=== PATIENT | male | born 1940 | race Caucasian/White ===

== ENCOUNTER → 2017-02-08 | Outpatient (CLI) | payer MEDICARE ==
[2017-02-08 12:55] LABS: Anisocytosis Slight; CH 25.8; CHCM 29.1; HCT 32.8 % (39.0-53.0); HDW 2.68; HGB 9.8 gm/dL (13.0-17.5); Hypochromasia Marked; MCH 26.7 pg (25.0-35.0); MCV 88.9 fL (80.0-100.0); RBC 3.69 m/uL (4.30-5.90); RDW 18.2 % (11.5-15.5); WBC 4.5 k/uL (3.8-10.6)
[2017-02-08 13:03] LABS: ALT 33 U/L (21-72); AST 42 U/L (17-59); Alkaline Phosphatase 149 U/L (38-126); Anion Gap 9 mmol/L; Bilirubin, Delta 0.5 mg/dL (0.0-0.2); Blood Urea Nitrogen 12 mg/dL (9-20); Calcium 8.6 mg/dL (8.4-10.2); Carbon Dioxide 25 mmol/L (22-30); Chloride 102 mmol/L (98-107); Glucose 126 mg/dL (74-99); Non-African American GFR(MDRD) >60 (>60 ml/min/1.73 sqM); Potassium 4.1 mmol/L (3.5-5.1); Sodium 136 mmol/L (137-145); Total Bilirubin 1.1 mg/dL (0.2-1.3); Total Protein 7.5 g/dL (6.3-8.2)
== END | disposition home or self-care (01) ==
LOC: LABWHC1 12:29
PROVIDERS: ATTEND Radiology Vascular & Interventional Radiology
DX: C22.0 Liver cell carcinoma (principal)
CPT/HCPCS: 36415; 80048; 80076; 82105; 85027

== ENCOUNTER → 2017-03-04 | Outpatient (CLI) | payer MEDICARE ==
[2017-03-04 11:44] LABS: Anisocytosis Slight; Basophils % (A) 0 %; CH 26.9; CHCM 29.2; Eosinophils % (A) 1 %; HCT 26.4 % (39.0-53.0); HDW 2.52; Hypochromasia Marked; Luc # (Auto) 0.09; Luc % (Auto) 2; Lymphocytes # (A) 0.4 k/uL (1.0-4.8); Lymphocytes % (A) 9 %; MCH 27.5 pg (25.0-35.0); MCHC 29.8 g/dL (31.0-37.0); MCV 92.3 fL (80.0-100.0); Mean Platelet Volume 7.1; Monocytes # (A) 0.2 k/uL (0-1.0); Monocytes % (A) 4 %; Neutrophils # (A) 3.8 k/uL (1.3-7.7); Neutrophils % (A) 84 %; RBC 2.86 m/uL (4.30-5.90); RDW 17.8 % (11.5-15.5); WBC 4.5 k/uL (3.8-10.6); WBC (Perox) 5.02
[2017-03-04 11:50] LABS: INR 2.1 (<1.1); Partial Thromboplastin Time 27.9 sec (22.0-30.0); Prothrombin Time 20.5 sec (9.0-12.0)
[2017-03-04 11:51] LABS: HGB 7.9 gm/dL (13.0-17.5)
[2017-03-04 12:18] LABS: Anion Gap 9 mmol/L; Blood Urea Nitrogen 22 mg/dL (9-20); Calcium 8.8 mg/dL (8.4-10.2); Carbon Dioxide 24 mmol/L (22-30); Chloride 100 mmol/L (98-107); Glucose 146 mg/dL (74-99); Non-African American GFR(MDRD) >60 (>60 ml/min/1.73 sqM); Potassium 3.9 mmol/L (3.5-5.1); Sodium 133 mmol/L (137-145)
== END | disposition home or self-care (01) ==
LOC: LABWHC1 11:12
PROVIDERS: ATTEND Radiology Vascular & Interventional Radiology
DX: C22.0 Liver cell carcinoma (principal); K70.31 Alcoholic cirrhosis of liver with ascites
CPT/HCPCS: 36415; 80048; 85025; 85610; 85730

== ENCOUNTER 2017-03-19 07:50 | Day surgery (SDC) | payer MEDICARE ==
[2017-03-17 10:07] VITALS: BMI 19.2
[~2017-03-19 07:50] MED LIST: LACTATED RINGERS 1,000 ML IV SCH; LIDOCAINE 1% 20 ML VIAL (10MG/ML) FOR IV START INTRADERMA PRN
[2017-03-19 08:25] VITALS: TEMP 97.6
[2017-03-19] MEDS ORDERED: LIDOCAINE 1% INJ 10MG/ML (20 ML MDV) ONE (08:58)
[2017-03-19] MEDS ORDERED: PROPOFOL 10 MG/ML 20 ML VIAL IV ONE (08:58)
--- NOTE | 2017-03-19 09:10 | P.PCN ---
Date of Procedure: 03/19/17 Preoperative Diagnosis: Postoperative Diagnosis: Procedure(s) Performed: BRIEF HISTORY: Patient is a 77-year-old, pleasant, white male, scheduled for an upper endoscopy as a part of evaluation of long-standing history of GERD and dysphagia. He also has history of alcoholic cirrhosis of the liver diagnosed 4 years ago.. PROCEDURE PERFORMED: Esophagogastroduodenoscopy. PREOPERATIVE DIAGNOSIS: Dysphagia, GERD. History of liver cirrhosis. IV sedation per anesthesia. PROCEDURE: After informed consent was obtained, the patient was brought into the endoscopy unit. IV sedation was administered by Anesthesia under continuous monitoring. Initially the Olympus GIF-140 video endoscope was inserted into the mouth. Esophagus intubated without any difficulty. It was gradually advanced into the stomach and duodenum and carefully examined. The bulb and the second part of the duodenum appeared normal. The scope at this time was withdrawn to the stomach, adequately insufflated with air, and upon careful examination, mucosa of the antrum, body, had changes consistent with mild portal gastropathy. The cardia and the fundus appeared normal. No gastric varices seen. The scope was then withdrawn into the esophagus. Small sliding Hiatal hernia noted. The GE junction was located at 39 cm from the incisors. There were no erosions or ulcerations seen. No esophageal stricture identified. There were grade 2 nonbleeding distal esophageal varices seen and the patient tolerated the procedure well. IMPRESSION: 1. Grade 2 nonbleeding distal esophageal varices. 2. Small hiatal hernia but no evidence of esophagitis or esophageal stricture 3. Mild portal hypertensive gastropathy RECOMMENDATIONS: The findings of this examination were discussed with the patient as well as his family. He was advised to continue with his current medications and follow antireflux measures.. Implants: Indications for Procedure: Operative Findings: Description of Procedure:
[2017-03-19 09:27] VITALS: BP 99/56; PULSE 71; RESP 18
== END 2017-03-19 10:03 | disposition home or self-care (01) ==
LOC: ORWHC2ENDO 07:50
PROVIDERS: ATTEND Internal Medicine Gastroenterology
DX: I85.00 Esophageal varices without bleeding (principal); R13.10 Dysphagia, unspecified; K44.9 Diaphragmatic hernia without obstruction or gangrene; K76.6 Portal hypertension; K31.89 Other diseases of stomach and duodenum; I25.10 Atherosclerotic heart disease of native coronary artery without angina pectoris; I10 Essential (primary) hypertension; K70.30 Alcoholic cirrhosis of liver without ascites; E78.5 Hyperlipidemia, unspecified; K21.9 Gastro-esophageal reflux disease without esophagitis; C22.8 Malignant neoplasm of liver, primary, unspecified as to type; Z79.82 Long term (current) use of aspirin; Z79.899 Other long term (current) drug therapy
CPT/HCPCS: 43235; J2001; J2704

== ENCOUNTER → 2017-03-21 | Outpatient (CLI) | payer MEDICARE ==
[2017-03-21 13:02] LABS: Anisocytosis Slight; Basophils % (A) 0 %; CH 26.9; CHCM 28.9; Eosinophils % (A) 0 %; HCT 26.7 % (39.0-53.0); HDW 2.57; HGB 7.8 gm/dL (13.0-17.5); Hypochromasia Marked; Luc # (Auto) 0.14; Luc % (Auto) 1; Lymphocytes # (A) 0.4 k/uL (1.0-4.8); Lymphocytes % (A) 3 %; MCH 27.3 pg (25.0-35.0); MCHC 29.2 g/dL (31.0-37.0); MCV 93.4 fL (80.0-100.0); Mean Platelet Volume 7.5; Monocytes # (A) 0.5 k/uL (0-1.0); Monocytes % (A) 4 %; Neutrophils # (A) 10.7 k/uL (1.3-7.7); Neutrophils % (A) 91 %; RBC 2.86 m/uL (4.30-5.90); WBC 11.7 k/uL (3.8-10.6); WBC (Perox) 12.09
[2017-03-21 13:14] LABS: Anion Gap 12 mmol/L; Blood Urea Nitrogen 18 mg/dL (9-20); Carbon Dioxide 22 mmol/L (22-30); Chloride 104 mmol/L (98-107); Glucose 189 mg/dL (74-99); Non-African American GFR(MDRD) 57 (>60 ml/min/1.73 sqM); Sodium 138 mmol/L (137-145)
[2017-03-21 13:15] LABS: INR 1.9 (<1.1); Prothrombin Time 17.9 sec (9.0-12.0)
[2017-03-21 14:09] LABS: Partial Thromboplastin Time 26.4 sec (22.0-30.0)
== END | disposition home or self-care (01) ==
LOC: LABWHC1 12:28
PROVIDERS: ATTEND Radiology Vascular & Interventional Radiology
DX: C22.0 Liver cell carcinoma (principal)
CPT/HCPCS: 36415; 80048; 85025; 85610; 85730

== ENCOUNTER → 2017-04-18 | Outpatient (CLI) | payer MEDICARE ==
[2017-04-18 14:08] LABS: Basophils % (A) 0 %; CH 26.2; CHCM 29.3; Eosinophils # (A) 0.1 k/uL (0-0.7); Eosinophils % (A) 2 %; HCT 25.5 % (39.0-53.0); HDW 2.62; HGB 7.8 gm/dL (13.0-17.5); Hypochromasia Marked; Luc # (Auto) 0.11; Luc % (Auto) 2; Lymphocytes # (A) 0.3 k/uL (1.0-4.8); Lymphocytes % (A) 5 %; MCH 27.3 pg (25.0-35.0); MCHC 30.5 g/dL (31.0-37.0); MCV 89.8 fL (80.0-100.0); Mean Platelet Volume 7.6; Monocytes # (A) 0.5 k/uL (0-1.0); Monocytes % (A) 9 %; Neutrophils # (A) 4.6 k/uL (1.3-7.7); Neutrophils % (A) 83 %; RBC 2.84 m/uL (4.30-5.90); RDW 15.4 % (11.5-15.5); WBC 5.6 k/uL (3.8-10.6); WBC (Perox) 5.82
[2017-04-18 14:19] LABS: ALT 33 U/L (21-72); AST 47 U/L (17-59); Alkaline Phosphatase 217 U/L (38-126); Anion Gap 9 mmol/L; Bilirubin, Delta 0.7 mg/dL (0.0-0.2); Blood Urea Nitrogen 15 mg/dL (9-20); Calcium 8.8 mg/dL (8.4-10.2); Carbon Dioxide 24 mmol/L (22-30); Chloride 100 mmol/L (98-107); Glucose 105 mg/dL (74-99); Non-African American GFR(MDRD) >60 (>60 ml/min/1.73 sqM); Potassium 3.9 mmol/L (3.5-5.1); Sodium 133 mmol/L (137-145); Total Bilirubin 1.4 mg/dL (0.2-1.3); Total Protein 6.3 g/dL (6.3-8.2)
== END ==
LOC: LABWHC1 13:34
PROVIDERS: ATTEND Radiology Vascular & Interventional Radiology
DX: C22.0 Liver cell carcinoma (principal)
CPT/HCPCS: 36415; 80048; 80076; 82105; 85025

== ENCOUNTER 2017-07-25 01:45 | Inpatient (IN) | payer MEDICARE ==
[2017-07-25] MEDS ORDERED: IPRATROPIUM-ALBUTEROL 3 ML NEB INHALATION STA (02:13)
[2017-07-25] MEDS ORDERED: SODIUM CHLORIDE 0.9% 1,000 ML IV STA ×2 (02:13)
--- NOTE | 2017-07-25 02:21 | ED ---
URI HPI - General Source: patient, RN notes reviewed, old records reviewed Mode of arrival: wheelchair Limitations: no limitations <Ange Hightower - Last Filed: 07/25/17 13:42> <Zhang Thomason - Last Filed: 08/01/17 09:49> - General Chief Complaint: Upper Respiratory Infection Stated Complaint: Cough,CHRIS Time Seen by Provider: 07/25/17 01:59 - History of Present Illness Initial Comments: This is a 77-year-old male with a history of hepatocellular carcinoma with metastases presents emergency Department chief complaint of difficulty breathing , and cough for the past 2 days. He reports he's had a minor cough over the past few weeks but became progressively worse yesterday into today. Patient is concerned that he may have pneumonia. Patient states last chemo treatment was a proximally 1 month ago. Majority of his treatments are completed a [facility]. Patient reports that he's had no specific chest pain. Denies any hemoptysis. He reports that he's had cough but is unable to bring any sputum up. Patient has no known fever but states he feels chilled. He does have a significant weight loss over the past few months due to the cancer. does have a pacemaker. Patient denies any worsening abdominal pain, nausea or vomiting. Patient denies any recent fever, chills, chest pain, back pain, abdominal pain, nausea vomiting, numbness or tingling, dysuria or hematuria, constipation or diarrhea, headaches or visual changes, or any other current symptoms (Ange Hightower) - Related Data Home Medications Medication Instructions Recorded Confirmed Aspirin EC [Ecotrin] 325 mg PO DAILY 02/14/15 07/25/17 Furosemide [Lasix] 40 mg PO DAILY 02/14/15 07/25/17 Metoprolol Tartrate 25 mg PO BID 02/14/15 07/25/17 Simvastatin [Zocor] 20 mg PO HS 02/14/15 07/25/17 Spironolactone [Aldactone] 50 mg PO BID 02/14/15 07/25/17 amLODIPine BESYLATE/BENAZEPRIL 1 cap PO DAILY 02/14/15 07/25/17 [Lotrel 5-20 mg Capsule] Ferrous Sulfate [Iron] 325 mg PO TID 07/25/17 07/25/17 Allergies Allergy/AdvReac Type Severity Reaction Status Date / Time Iodine and Iodide Containing Allergy Rash/Hives Verified 07/25/17 09:43 Produc Review of Systems ROS Other: All systems not noted in ROS Statement are negative. <Ange Hightower - Last Filed: 07/25/17 13:42> ROS Other: All systems not noted in ROS Statement are negative. <Zhang Thomason - Last Filed: 08/01/17 09:49> ROS Statement: Those systems with pertinent positive or pertinent negative responses have been documented in the HPI. Past Medical History Past Medical History: Coronary Artery Disease (CAD), Hyperlipidemia, Hypertension, Liver Disease, Osteoarthritis (OA), Skin Disorder Additional Past Medical History / Comment(s): hx of eczema, previous fluid in belly, drained during hernia surgery 3.5L, STATES HAS 2 PRECANCEROUS TUMORS IN PORTAL VEIN OF LIVER History of Any Multi-Drug Resistant Organisms: None Reported Past Surgical History: Heart Catheterization With Stent, Hernia Repair, Orthopedic Surgery, Pacemaker Additional Past Surgical History / Comment(s): hernia repair 2013, left ankle surgery orif, PORTAL VEIN MAPPING 03/04/17, BILAT CATARACTS REMOVED Past Anesthesia/Blood Transfusion Reactions: No Reported Reaction Additional Past Anesthesia/Blood Transfusion Reaction / Comment(s): never had transfusion Date of Last Stent Placement:: 2010 Type of Cardiac Device: Permanent Pacemaker Device Placement Date:: 2009 Past Psychological History: No Psychological Hx Reported Smoking Status: Former smoker - Past Family History Father Family Medical History: Cancer Additional Family Medical History / Comment(s): Kemi Gherig's Disease Mother Family Medical History: Hypertension Additional Family Medical History / Comment(s): Mother lived to be in her early 80s. <Ange Hightower - Last Filed: 07/25/17 13:42> General Exam Limitations: no limitations General appearance: alert, in no apparent distress Head exam: Present: atraumatic, normocephalic, normal inspection Eye exam: Present: normal appearance, PERRL, EOMI. Absent: scleral icterus, conjunctival injection, periorbital swelling ENT exam: Present: normal exam, mucous membranes moist Neck exam: Present: normal inspection. Absent: tenderness, meningismus, lymphadenopathy Respiratory exam: Present: rhonchi, decreased breath sounds (Is and diminished lung sounds over the right lower lung base.). Absent: normal lung sounds bilaterally, respiratory distress, wheezes, rales, stridor Cardiovascular Exam: Present: regular rate, normal rhythm, normal heart sounds. Absent: systolic murmur, diastolic murmur, rubs, gallop, clicks GI/Abdominal exam: Present: soft, normal bowel sounds. Absent: distended, tenderness, guarding, rebound, rigid Extremities exam: Present: normal inspection, full ROM, normal capillary refill. Absent: tenderness, pedal edema, joint swelling, calf tenderness Back exam: Present: normal inspection Neurological exam: Present: alert, oriented X3, CN II-XII intact Psychiatric exam: Present: normal affect, normal mood Skin exam: Present: warm, dry, intact, normal color. Absent: rash <Ange Hightower - Last Filed: 07/25/17 13:42> <Zhang Thomason - Last Filed: 08/01/17 09:49> - General Exam Comments Initial Comments: 77-year-old male. Patient appears cachectic.Patient's temperature is 96.8. Pulse of 80. Respiratory rate 16. Blood pressure 80/52. Pulse ox is 98% on room air. (Ange Hightower) Course <Ange Hightower - Last Filed: 07/25/17 13:42> <Zhang Thomason - Last Filed: 08/01/17 09:49> Vital Signs 07/25/17 07/25/17 07/25/17 01:50 02:33 02:42 Temperature 96.8 F L Pulse Rate 80 75 78 Respiratory 16 Rate Blood Pressure 80/52 O2 Sat by Pulse 98 Oximetry 07/25/17 07/25/17 07/25/17 03:25 04:47 05:44 Temperature 97 F L Pulse Rate 86 72 70 Respiratory 16 18 18 Rate Blood Pressure 106/55 90/50 87/56 O2 Sat by Pulse 100 98 98 Oximetry - Reevaluation(s) Reevaluation #1: 07/25/17 02:45 This time patient has a small skin tire on his left forearm. He bumped it on the bed rail. It is thoroughly irrigated and closed with Dermabond. Dressing also applied. Laceration measures approximately 1 cm. It is superficial. ( Ange Hightower) Medical Decision Making - Lab Data Result diagrams: 07/25/17 02:31 07/25/17 02:31 - Radiology Data Radiology results: report reviewed <Ange Hightower - Last Filed: 07/25/17 13:42> - Lab Data Result diagrams: 07/25/17 02:31 07/25/17 02:31 <Zhang Thomason - Last Filed: 08/01/17 09:49> - Medical Decision Making This is a 77-year-old male with a history of hepatocellular carcinoma with metastases presents emergency Department chief complaint of difficulty breathing , and cough for the past 2 days. He reports he's had a minor cough over the past few weeks but became progressively worse yesterday into today. Patient is concerned that he may have pneumonia. Patient states last chemo treatment was a proximally 1 month ago. Majority of his treatments are completed a [facility]. Patient reports that he's had no specific chest pain. Patient is given IV fluids and sepsis protocol initiated. Lactic acid and blood cultures obtained. Patient does have significant rhonchi on auscultation, and diminished lung sounds bilaterally. Patient does have a elevated d-dimer of 4.18. Patient is given CT SIMS chest, was premedicated with Solu-Medrol due to iodine ALLERGY. Patient's chest x-ray does show a moderate opacity within the right lung base consistent with a pleural effusion and probable atelectasis. was informed of these results. At 4:05 AM patient's case will be transferred to Dr. Martinez. He will make the final disposition. (Ange Hightower) I saw this patient in conjunction with the physician office assistant. I performed independent history and physical exam. Agree with case management. (Zhang Thomason) - Lab Data Lab Results 07/25/17 07/25/17 07/25/17 Range/Units 02:31 02:31 02:31 WBC 9.3 (3.8-10.6) k/uL RBC 3.48 L (4.30-5.90) m/uL Hgb 10.4 L (13.0-17.5) gm/dL Hct 33.8 L (39.0-53.0) % MCV 97.1 (80.0-100.0) fL MCH 29.7 (25.0-35.0) pg MCHC 30.6 L (31.0-37.0) g/dL RDW 16.8 H (11.5-15.5) % Plt Count 99 L (150-450) k/uL Neutrophils % 87 % Lymphocytes % 5 % Monocytes % 6 % Eosinophils % 1 % Basophils % 0 % Neutrophils # 8.1 H (1.3-7.7) k/uL Lymphocytes # 0.5 L (1.0-4.8) k/uL Monocytes # 0.6 (0-1.0) k/uL Eosinophils # 0.1 (0-0.7) k/uL Basophils # 0.0 (0-0.2) k/uL Hypochromasia Slight Anisocytosis Slight Macrocytosis Slight PT (9.0-12.0) sec INR (<1.2) APTT (22.0-30.0) sec D-Dimer (<0.60) mg/L FEU Sodium 129 L (137-145) mmol/L Potassium 3.5 (3.5-5.1) mmol/L Chloride 94 L (98-107) mmol/L Carbon Dioxide 25 (22-30) mmol/L Anion Gap 10 mmol/L BUN 12 (9-20) mg/dL Creatinine 1.00 (0.66-1.25) mg/dL Est GFR (MDRD) Af Amer >60 (>60 ml/min/1.73 sqM) Est GFR (MDRD) Non-Af >60 (>60 ml/min/1.73 sqM) Glucose 87 (74-99) mg/dL Plasma Lactic Acid Chemo (0.7-2.0) mmol/L Calcium 9.4 (8.4-10.2) mg/dL Magnesium 1.7 (1.6-2.3) mg/dL Total Bilirubin 3.4 H (0.2-1.3) mg/dL AST 49 (17-59) U/L ALT 38 (21-72) U/L Alkaline Phosphatase 283 H (38-126) U/L Total Creatine Kinase 66 (55-170) U/L CK-MB (CK-2) 1.4 (0.0-2.4) ng/mL CK-MB (CK-2) Rel Index 2.1 Troponin I 0.018 (0.000-0.034) ng/mL Total Protein 6.5 (6.3-8.2) g/dL Albumin 2.6 L (3.5-5.0) g/dL 07/25/17 07/25/17 Range/Units 02:31 02:31 WBC (3.8-10.6) k/uL RBC (4.30-5.90) m/uL Hgb (13.0-17.5) gm/dL Hct (39.0-53.0) % MCV (80.0-100.0) fL MCH (25.0-35.0) pg MCHC (31.0-37.0) g/dL RDW (11.5-15.5) % Plt Count (150-450) k/uL Neutrophils % % Lymphocytes % % Monocytes % % Eosinophils % % Basophils % % Neutrophils # (1.3-7.7) k/uL Lymphocytes # (1.0-4.8) k/uL Monocytes # (0-1.0) k/uL Eosinophils # (0-0.7) k/uL Basophils # (0-0.2) k/uL Hypochromasia Anisocytosis Macrocytosis PT 23.8 H (9.0-12.0) sec INR 2.5 H (<1.2) APTT 28.5 (22.0-30.0) sec D-Dimer 4.13 H (<0.60) mg/L FEU Sodium (137-145) mmol/L Potassium (3.5-5.1) mmol/L Chloride (98-107) mmol/L Carbon Dioxide (22-30) mmol/L Anion Gap mmol/L BUN (9-20) mg/dL Creatinine (0.66-1.25) mg/dL Est GFR (MDRD) Af Amer (>60 ml/min/1.73 sqM) Est GFR (MDRD) Non-Af (>60 ml/min/1.73 sqM) Glucose (74-99) mg/dL Plasma Lactic Acid Chemo 1.9 (0.7-2.0) mmol/L Calcium (8.4-10.2) mg/dL Magnesium (1.6-2.3) mg/dL Total Bilirubin (0.2-1.3) mg/dL AST (17-59) U/L ALT (21-72) U/L Alkaline Phosphatase (38-126) U/L Total Creatine Kinase (55-170) U/L CK-MB (CK-2) (0.0-2.4) ng/mL CK-MB (CK-2) Rel Index Troponin I (0.000-0.034) ng/mL Total Protein (6.3-8.2) g/dL Albumin (3.5-5.0) g/dL 07/25/17 02:37 EKG shows a ventricular paced rhythm. [place] interval of 69 bpm. QRS duration 162 ms. QT QTc is 510/546 ms. (Ange Hightower) - Radiology Data Moderate opacity within the right lung base consistent with pleural effusion and probable atelectasis. (Ange Hightower) Disposition <Ange Hightower - Last Filed: 07/25/17 13:42> <Zhang Thomason - Last Filed: 08/01/17 09:49> Clinical Impression: Pleural effusion, Pneumonia, Hyponatremia, Elevated d-dimer, Anemia, Dyspnea Disposition: ADMITTED IP TO THIS HOSP Condition: Poor
[2017-07-25] MEDS ORDERED: SODIUM CHLORIDE 0.9% 1,000 ML IV ONE (02:31)
[2017-07-25] MEDS ORDERED: PROMETHAZ-COD 6.25-10 MG/5 ML 5 ML CUP PO STA (02:41)
[2017-07-25] MEDS ORDERED: TOPICAL SKIN ADHESIVE 1 EACH AMP TOPICAL ONE (02:45)
[2017-07-25 02:59] LABS: ALT 38 U/L (21-72); AST 49 U/L (17-59); Alkaline Phosphatase 283 U/L (38-126); Anion Gap 10 mmol/L; Blood Urea Nitrogen 12 mg/dL (9-20); Calcium 9.4 mg/dL (8.4-10.2); Carbon Dioxide 25 mmol/L (22-30); Chloride 94 mmol/L (98-107); Glucose 87 mg/dL (74-99); Magnesium 1.7 mg/dL (1.6-2.3); Non-African American GFR(MDRD) >60 (>60 ml/min/1.73 sqM); Potassium 3.5 mmol/L (3.5-5.1); Sodium 129 mmol/L (137-145); Total Bilirubin 3.4 mg/dL (0.2-1.3); Total Protein 6.5 g/dL (6.3-8.2)
[2017-07-25 03:18] LABS: Anisocytosis Slight; Basophils % (A) 0 %; CH 30.4; CHCM 31.5; Creatine Kinase MB 1.4 ng/mL (0.0-2.4); Eosinophils # (A) 0.1 k/uL (0-0.7); Eosinophils % (A) 1 %; HCT 33.8 % (39.0-53.0); HDW 2.46; HGB 10.4 gm/dL (13.0-17.5); Hypochromasia Slight; Luc # (Auto) 0.07; Luc % (Auto) 1; Lymphocytes # (A) 0.5 k/uL (1.0-4.8); Lymphocytes % (A) 5 %; MCH 29.7 pg (25.0-35.0); MCHC 30.6 g/dL (31.0-37.0); MCV 97.1 fL (80.0-100.0); Macrocytosis Slight; Mean Platelet Volume 7.9; Monocytes # (A) 0.6 k/uL (0-1.0); Monocytes % (A) 6 %; Neutrophils # (A) 8.1 k/uL (1.3-7.7); Neutrophils % (A) 87 %; RBC 3.48 m/uL (4.30-5.90); RDW 16.8 % (11.5-15.5); Troponin I 0.018 ng/mL (0.000-0.034); WBC 9.3 k/uL (3.8-10.6); WBC (Perox) 8.66
[2017-07-25 03:26] LABS: INR 2.5 (<1.2); Partial Thromboplastin Time 28.5 sec (22.0-30.0); Prothrombin Time 23.8 sec (9.0-12.0)
--- NOTE | 2017-07-25 03:39 | XR ---
EXAM: XR Chest, 2 Views CLINICAL HISTORY: Difficulty breathing TECHNIQUE: Frontal and lateral views of the chest. COMPARISON: No relevant prior studies available. FINDINGS: Lungs: Moderate opacity within the right lung base consistent with pleural effusion and probable atelectasis. Pleural space: See above. Heart: Unremarkable. No cardiomegaly. Bones/joints: No acute osseous abnormality. Tubes, lines and devices: Mildly prominent cardiomediastinal silhouette with dual-chamber cardiac pacemaker. IMPRESSION: Moderate opacity within the right lung base consistent with pleural effusion and probable atelectasis.
[2017-07-25] MEDS ORDERED: RX INFO: IV CONTRAST WAS GIVEN 1 EACH MISC MISCELLANE PRN (03:43)
[2017-07-25] MEDS ORDERED: diphenhydrAMINE 50 MG/ML 1 ML VIAL IVP STA (03:45)
[2017-07-25] MEDS ORDERED: methylPREDNISolone SOD SUCCI 125 MG/2 ML VIAL IV STA (03:45)
--- NOTE | 2017-07-25 04:56 | CT ---
EXAM: CT Angiography Chest With Intravenous Contrast CLINICAL HISTORY: Reason: Pain TECHNIQUE: Axial computed tomographic angiography images of the chest with intravenous contrast using pulmonary embolism protocol. CTDI is 3.0, 46. 50, 6.90 mGy and DLP is 280.80 mGy-cm. This CT exam was performed using one or more of the following dose reduction techniques: automated exposure control, adjustment of the mA and/or kV according to patient size, and/or use of iterative reconstruction technique. MIP reconstructed images were created and reviewed. COMPARISON: No relevant prior studies available. FINDINGS: Pulmonary arteries: No evidence of pulmonary embolus. Aorta: Calcific described disease of the thoracic aorta without evidence of dissection or aneurysm. Lungs: Large right pleural effusion with presumed adjacent atelectasis. Pneumonia is not excluded. Left lung is clear. Centrilobular and paraseptal emphysema. No mass. Pleural space: See above. Heart: Coronary artery calcifications. No significant pericardial effusion. No evidence of RV dysfunction. Bones/joints: No acute osseous abnormality. No dislocation. Soft tissues: Unremarkable. Lymph nodes: Unremarkable. No enlarged lymph nodes. Liver: Probable cirrhotic liver with two masses within the left hepatic lobe, the largest measuring up to 9.0 cm. Findings are concerning for possible HCC. Spleen: Splenomegaly with moderate amount of ascites. Tubes, lines and devices: Dual chamber cardiac pacemaker. IMPRESSION: 1. No evidence of pulmonary embolus. 2. Large right pleural effusion with presumed adjacent atelectasis. Pneumonia is not excluded. 3. Probable cirrhotic liver with two masses within the left hepatic lobe, the largest measuring up to 9.0 cm. Findings are concerning for possible HCC.
[2017-07-25] MEDS ORDERED: NALOXONE 0.4 MG/ML 1 ML VIAL IV PRN (05:16)
[2017-07-25] MEDS ORDERED: LEVOFLOXACIN 750MG-D5W PMX 750 MG in DEXTROSE/WATER 1 150ML.BAG IVPB STA (05:16)
[2017-07-25] MEDS: SODIUM CHLORIDE 0.9% 1,000 ML IV SCH ×2 (05:37→12:02)
[2017-07-25] MEDS ORDERED: HEPARIN SODIUM,PORCINE 5,000 UNIT/ML 1 ML VIAL SQ SCH (09:00)
[2017-07-25 10:58] VITALS: BMI 18.0
--- NOTE | 2017-07-25 11:12 | US ---
EXAMINATION TYPE: US chest DATE OF EXAM: 07/25/2017 COMPARISON: NONE CLINICAL HISTORY: Markings for thoracentesis by pulmonary staff. EXAM MEASUREMENTS: Right Pleural Effusion fluid pocket: 6.9 cm Right skin to fluid thickness: 1.4 cm Left Pleural Effusion fluid pocket: no fluid Right side marked for possible thoracentesis outside the dept. Left side not marked for possible thoracentesis outside the dept. Pulmonologists are able to review the images in the patient?s EMR. IMPRESSIONS: Moderate right pleural effusion
--- NOTE | 2017-07-25 11:21 | P.HPIM ---
History of Present Illness H&P Date: 07/25/17 77 year male who presented to the ER on 07/24/2017 with a chief complaint and difficulty in breathing. He reports that he has had a cough for a few weeks but it has become worse within the last couple days and he is having difficulty breathing. The patient has a history of hepatocellular carcinoma with metastasis that was diagnosed approximately 4 years ago. The patient is undergoing chemo treatments at [facility]. His last treatment was about a month ago. The patient also has a history of coronary artery disease, hyperlipidemia, hypertension, liver disease, osteoarthritis, hiatal hernia, gastritis, esophageal varices ascites with paracentesis, complete heart block with pacemaker insertion, alcohol abuse with reported last drink 25 years ago. The patient also reports to Dr. Hills that he thinks he may have had a thoracentesis downtown but is not for sure. A chest x-ray was completed in the emergency room which displayed moderate opacity within the right lung base consistent with pleural effusion and probable atelectasis. The patient also underwent a CAT scan of the chest which was negative for pulmonary embolism. However, there was a large right pleural effusion with presumed adjacent atelectasis and also the possibility of pneumonia. It displayed liver cirrhosis with 2 masses within the left hepatic lobe with the largest measuring 9 cm. The patient's bilirubin was 3.4 and his alkaline phosphatase was 283. ALT and AST were within normal limits. His lactic acid was 1.9. Kidney function was within normal range. His sodium is decreased at 129. INR is elevated at 2.5. His d-dimer was elevated at 4.13. He was admitted to the hospital under the care of Dr. Hills. Consults were placed to pulmonary. The patient was seen and examined this morning in rounds with Dr. Hills. The patient is sitting up in bed, awake and alert. He states he is feeling decent this morning and has no specific complaints. He is eating breakfast and states his appetite is good. However, he states he has lost approximately 100 pounds due to his declining health. The patient states he would like to continue to follow-up with his oncologist downtown, so no oncology consultation will be ordered at this time. The patient states he would like to get his pleural effusion resolved and will follow-up with his oncologist downtown after discharge. Review of Systems Those systems with pertinent positive or pertinent negative responses have been documented in the HPI Past Medical History Past Medical History: Coronary Artery Disease (CAD), Cancer, Hyperlipidemia, Hypertension, Liver Disease, Osteoarthritis (OA), Skin Disorder Additional Past Medical History / Comment(s): Pt is somewhat a poor historian. 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 History of Any Multi-Drug Resistant Organisms: None Reported Past Surgical History: Heart Catheterization With Stent, Hernia Repair, Orthopedic Surgery, Pacemaker Additional Past Surgical History / Comment(s): 03/2017 EGD, colonoscopy, hernia repair 2013, left ankle surgery orif, PORTAL VEIN MAPPING 03/04/17, L CATARACTS REMOVED Past Anesthesia/Blood Transfusion Reactions: No Reported Reaction Additional Past Anesthesia/Blood Transfusion Reaction / Comment(s): never had transfusion Date of Last Stent Placement:: 2010 Type of Cardiac Device: Permanent Pacemaker Device Placement Date:: 2009 Smoking Status: Former smoker - Past Family History Mother Family Medical History: Hypertension Additional Family Medical History / Comment(s): Mother lived to be in her early 80s. Father Family Medical History: Musculoskeletal Disorder, Neurologic Disorder Additional Family Medical History / Comment(s): Father of Kemi Gherig's Disease at the age of 63 yrs. Medications and Allergies Home Medications Medication Instructions Recorded Confirmed Type Aspirin EC [Ecotrin] 325 mg PO DAILY 02/14/15 07/25/17 History Furosemide [Lasix] 40 mg PO DAILY 02/14/15 07/25/17 History Metoprolol Tartrate 25 mg PO BID 02/14/15 07/25/17 History Simvastatin [Zocor] 20 mg PO HS 02/14/15 07/25/17 History Spironolactone [Aldactone] 50 mg PO BID 02/14/15 07/25/17 History amLODIPine BESYLATE/BENAZEPRIL 1 cap PO DAILY 02/14/15 07/25/17 History [Lotrel 5-20 mg Capsule] Ferrous Sulfate [Iron] 325 mg PO TID 07/25/17 07/25/17 History Allergies Allergy/AdvReac Type Severity Reaction Status Date / Time Iodine and Iodide Containing Allergy Rash/Hives Verified 07/25/17 09:43 Produc Physical Exam Vitals: Vital Signs Temp Pulse Pulse Resp BP BP Pulse Ox 07/25/17 08:18 59 L 18 96/62 100 07/25/17 08:00 59 L 07/25/17 05:44 97 F L 70 18 87/56 98 07/25/17 04:47 72 18 90/50 98 07/25/17 03:25 86 16 106/55 100 07/25/17 02:42 78 07/25/17 02:33 75 07/25/17 01:50 96.8 F L 80 16 80/52 98 Intake and Output 07/24/17 07/25/17 07/25/17 22:59 06:59 14:59 Other: # Voids 1 Weight 63.594 kg GENERAL: Cachectic. Alert and oriented. Pleasant. RESPIRATORY: Lungs diminished throughout, especially in right lower lobe, coarse. No use of accessory muscles. Patient maintaining oxygen saturation greater than 92%. CARDIOVASCULAR: S1 and S2 noted. No murmurs auscultated. No JVD noted. EXTREMITIES: No edema noted. Palpable pedal pulses +2. ABDOMEN: No distention noted. Abdomen soft and round. Normal active bowel sounds auscultated 4 quadrants. No pain or tenderness noted upon palpation. Results CBC & Chem 7: 07/25/17 02:31 07/25/17 02:31 Labs: Abnormal Lab Results - Last 24 Hours (Table) 07/25/17 07/25/17 07/25/17 Range/Units 02:31 02:31 02:31 RBC 3.48 L (4.30-5.90) m/uL Hgb 10.4 L (13.0-17.5) gm/dL Hct 33.8 L (39.0-53.0) % MCHC 30.6 L (31.0-37.0) g/dL RDW 16.8 H (11.5-15.5) % Plt Count 99 L (150-450) k/uL Neutrophils # 8.1 H (1.3-7.7) k/uL Lymphocytes # 0.5 L (1.0-4.8) k/uL PT 23.8 H (9.0-12.0) sec INR 2.5 H (<1.2) D-Dimer 4.13 H (<0.60) mg/L FEU Sodium 129 L (137-145) mmol/L Chloride 94 L (98-107) mmol/L Total Bilirubin 3.4 H (0.2-1.3) mg/dL Alkaline Phosphatase 283 H (38-126) U/L Albumin 2.6 L (3.5-5.0) g/dL Thrombosis Risk Factor Assmnt - Choose All That Apply Any of the Below Risk Factors Present?: Yes Other Risk Factors: Yes Each Risk Factor Represents 2 Points: Malignancy Each Risk Factor Represents 3 Points: Age 75 years or older Other congenital or acquired thrombophilia - If yes, enter type in comment: No Thrombosis Risk Factor Assessment Total Risk Factor Score: 5 Thrombosis Risk Factor Assessment Level: High Risk Assessment and Plan Plan: ASSESSMENT: -Large right pleural effusion, present on admission -Hepatocellular carcinoma with metastasis, undergoing chemotherapy at [facility] in [place] -Elevated d-dimer, chest CT negative for PE -Hyponatremia, present on admission -Coagulopathy, INR 2.5, secondary to liver disease -Elevated bilirubin and alkaline phosphatase, secondary to liver disease -History of alcohol abuse, with last drink 25 years ago -Severe protein calorie malnutrition, patient reports weight loss of 100 pounds -Ascites with history of paracentesis -History of complete heart block with permanent pacemaker insertion -Hyperlipidemia PLAN: -Pulmonary on consult. Appreciate recommendations and input -Possible thoracentesis -Monitor sodium. will repeat in the AM. May need nephrology consultation -Resume home meds as appropriate -Consult Dietitian -Decrease IV fluids -Monitor blood pressure -Monitor labs -GI prophylaxis: Pepcid 20mg BID PO -DVT prophylaxis: patient anti-coagulated due to liver disease -Monitor vital signs and address as appropriate -Patient would like to follow up with oncologist [place]. Will hold off on oncology consult The above impression and plan of care have been discussed and directed by signing physician. Tatiana Mcmanus, nurse practitioner, acting as scribe for signing physician.
[2017-07-25] MEDS: ASPIRIN 325 MG TAB PO SCH (11:52)
[2017-07-25] MEDS: FUROSEMIDE 40 MG TAB PO SCH (11:52)
[2017-07-25] MEDS: SPIRONOLACTONE 25 MG TAB PO SCH ×2 (11:53→22:12)
--- NOTE | 2017-07-25 15:37 | P.CNPUL ---
History of Present Illness Consult date: 07/25/17 Reason for consult: dyspnea, cough, abnormal CXR/CT Chief complaint: Increased shortness of breath, cough History of present illness: This is a 77-year-old male patient with known history of hepatocellular carcinoma with metastasis diagnosed 4 years ago with current chemo treatments at [facility] that presented on 07/24/2017 with complaints of increased shortness of breath and a worsening cough for last 4 days. His last chemo treatment was about a month ago. Patient denied a chest pain, hemoptysis, fever but he did have chills since his symptoms started a few days ago. Patient denied abdominal pain, dysuria, headaches or any other current symptoms. Chest x-ray on 07/25/2017 showed moderate opacity within the right lung consistent with pleural effusion and atelectasis. CTA chest on 07/25/2017 showed no evidence of pulmonary embolism but redemonstrated large right pleural effusion with adjacent atelectasis, probable cirrhotic liver with 2 masses within the left hepatic lobe which were suspicious for possible hepatocellular carcinoma. Patient's was started on IV steroids, DuoNeb nebulized treatments, and IV Levaquin for empiric antibiotic coverage. On examination patient is awake alert, in no acute distress, sitting up in the chair. He is still having the nonproductive congested loose cough, his lung sounds are clear but very diminished at the bases. No wheezes, no rhonchi, no rales were auscultated. Patient's abdomen is firm and protuberant. He states he feels better today and that he feels like he could go home. He states he would like to be able to walk around the room without having to be connected to oxygen or the IV poles. His appetite has been poor per his , consult was put in for the registered dietitian regarding his protein calorie malnutrition. Patient had over 100 pound weight loss since his diagnosis of hepatocellular carcinoma. Review of Systems All systems: negative Constitutional: Denies chills, Denies fever Eyes: denies blurred vision, denies pain Ears, nose, mouth and throat: Denies headache, Denies sore throat Cardiovascular: Denies chest pain, Denies shortness of breath Respiratory: Denies cough Gastrointestinal: Denies abdominal pain, Denies diarrhea, Denies nausea, Denies vomiting Musculoskeletal: Denies myalgias Integumentary: Denies pruritus, Denies rash Neurological: Denies numbness, Denies weakness Psychiatric: Denies anxiety, Denies depression Endocrine: Denies fatigue, Denies weight change Past Medical History Past Medical History: Coronary Artery Disease (CAD), Hyperlipidemia, Hypertension, Liver Disease, Osteoarthritis (OA), Skin Disorder Additional Past Medical History / Comment(s): hx of eczema, previous fluid in belly, drained during hernia surgery 3.5L, STATES HAS 2 PRECANCEROUS TUMORS IN PORTAL VEIN OF LIVER History of Any Multi-Drug Resistant Organisms: None Reported Past Surgical History: Heart Catheterization With Stent, Hernia Repair, Orthopedic Surgery, Pacemaker Additional Past Surgical History / Comment(s): hernia repair 2013, left ankle surgery orif, PORTAL VEIN MAPPING 03/04/17, BILAT CATARACTS REMOVED Past Anesthesia/Blood Transfusion Reactions: No Reported Reaction Additional Past Anesthesia/Blood Transfusion Reaction / Comment(s): never had transfusion Date of Last Stent Placement:: 2010 Type of Cardiac Device: Permanent Pacemaker Device Placement Date:: 2009 Past Psychological History: No Psychological Hx Reported Smoking Status: Former smoker - Past Family History Mother Family Medical History: Hypertension Additional Family Medical History / Comment(s): Mother lived to be in her early 80s. Father Family Medical History: Cancer Additional Family Medical History / Comment(s): Kemi Mckenzie's Disease Medications and Allergies Home Medications Medication Instructions Recorded Confirmed Type Aspirin EC [Ecotrin] 325 mg PO DAILY 02/14/15 07/25/17 History Furosemide [Lasix] 40 mg PO DAILY 02/14/15 07/25/17 History Metoprolol Tartrate 25 mg PO BID 02/14/15 07/25/17 History Simvastatin [Zocor] 20 mg PO HS 02/14/15 07/25/17 History Spironolactone [Aldactone] 50 mg PO BID 02/14/15 07/25/17 History amLODIPine BESYLATE/BENAZEPRIL 1 cap PO DAILY 02/14/15 07/25/17 History [Lotrel 5-20 mg Capsule] Ferrous Sulfate [Iron] 325 mg PO TID 07/25/17 07/25/17 History Allergies Allergy/AdvReac Type Severity Reaction Status Date / Time Iodine and Iodide Containing Allergy Rash/Hives Verified 07/25/17 09:43 Produc Physical Exam Vitals: Vital Signs Temp Pulse Pulse Resp BP BP Pulse Ox 07/25/17 08:18 59 L 18 96/62 100 07/25/17 08:00 59 L 07/25/17 05:44 97 F L 70 18 87/56 98 07/25/17 04:47 72 18 90/50 98 07/25/17 03:25 86 16 106/55 100 07/25/17 02:42 78 07/25/17 02:33 75 07/25/17 01:50 96.8 F L 80 16 80/52 98 Intake and Output 07/24/17 07/25/17 07/25/17 22:59 06:59 14:59 Other: # Voids 1 Weight 63.594 kg 63.594 kg Patient Weight 07/26/17 06:59 Weight 63.594 kg Results - Laboratory Findings CBC and BMP: 07/25/17 02:31 07/25/17 02:31 PT/INR, D-dimer PT 23.8 sec (9.0-12.0) H 07/25/17 02:31 INR 2.5 (<1.2) H 07/25/17 02:31 D-Dimer 4.13 mg/L FEU (<0.60) H 07/25/17 02:31 Abnormal lab findings: Abnormal Labs 07/25/17 07/25/17 07/25/17 02:31 02:31 02:31 RBC 3.48 L Hgb 10.4 L Hct 33.8 L MCHC 30.6 L RDW 16.8 H Plt Count 99 L Neutrophils # 8.1 H Lymphocytes # 0.5 L PT 23.8 H INR 2.5 H D-Dimer 4.13 H Sodium 129 L Chloride 94 L Total Bilirubin 3.4 H Alkaline Phosphatase 283 H Albumin 2.6 L - Diagnostic Findings Chest x-ray: report reviewed Assessment and Plan Plan: Assessment: #1. Right pleural effusion due to hepatocellular carcinoma. Patient may need thoracentesis and paracentesis if the INR is less than 1.4. This option was given to the patient and his family, who at this time are trying to decide whether to proceed with transfer to [facility] where patient is receiving his chemotherapy for his hepatocellular carcinoma with metastasis #2. Hepatocellular carcinoma with metastasis, undergoing chemotherapy #3. Coagulopathy, INR is 2.5, related to HCC with metastasis #4. Elevated d-dimer, CTA chest on 07/25/2017 negative for PE #5. Ascites with history of paracentesis #6. Hyponatremia, present on admission, probably due to intravascular hypovolemia related to liver disease #7. History of permanent pacemaker for complete heart block #8. Coronary artery disease #9. Hyperlipidemia #10. Hypertension #11. History of esophageal varices related to history of EtOH dependence #12. History of nicotine dependence, in remission Plan: Continue with DuoNeb nebulized treatments, agree with empiric antibiotics in the form of Levaquin. Unable to proceed with thoracentesis or paracentesis at this time due to coagulopathy. Clinically patient is not in any significant amount of respiratory distress. As a matter fact he thinks his breathing is well enough to go home today and he would like to be discharged home today or tomorrow. Dietary consult will be initiated for his protein calorie malnutrition. No sputum production, no fevers. If the patient decides to proceed with the paracentesis or the thoracentesis here, we may have to transfuse with fresh frozen plasma and give vitamin K. In the meantime we'll continue to monitor for changes in his clinical status and proceed with interventions accordingly. I performed a history & physical examination of the patient and discussed their management with my nurse practitioner, Ayah Virk. I reviewed the nurse practitioner's note and agree with the documented findings and plan of care. Patient and his are considering the option of transferring to the [facility] where he is receiving his chemo treatments or going home in the next 24 hours assuming his condition does not deteriorate. Unable to proceed with thoracentesis or the paracentesis due to coagulopathy. Lungs sounds are clear diminished at the bases, with no rhonchi, no wheezing no rales. Patient is not using any accessory muscles, no signs of significant respiratory distress. I attest to the documentation by the nurse practitioner
[2017-07-25] MEDS: FERROUS SULFATE 325 MG TAB PO SCH ×2 (16:53→22:11)
[2017-07-25] MEDS ORDERED: ATORVASTATIN 10 MG TAB PO SCH (21:00)
[2017-07-25 21:47] VITALS: RESP 16
[2017-07-25] MEDS: FAMOTIDINE 20 MG TAB PO SCH (22:11)
[2017-07-26 08:23] VITALS: BP 110/58; PULSE 71; TEMP 97.6
[2017-07-26] MEDS: SPIRONOLACTONE 25 MG TAB PO SCH (08:35)
[2017-07-26] MEDS: ASPIRIN 325 MG TAB PO SCH (08:35)
[2017-07-26] MEDS: FUROSEMIDE 40 MG TAB PO SCH (08:35)
[2017-07-26] MEDS: FAMOTIDINE 20 MG TAB PO SCH (08:35)
[2017-07-26] MEDS: FERROUS SULFATE 325 MG TAB PO SCH (08:35)
--- NOTE | 2017-07-26 13:28 | P.PN ---
Subjective Progress Note Date: 07/26/17 Principal diagnosis: Right pleural effusion secondary to hepatocellular carcinoma with metastasis This is a 77-year-old male patient with known history of hepatocellular carcinoma with metastasis diagnosed 4 years ago with current chemo treatments at [facility] that presented on 07/24/2017 with complaints of increased shortness of breath and a worsening cough for last 4 days. His last chemo treatment was about a month ago. Patient denied a chest pain, hemoptysis, fever but he did have chills since his symptoms started a few days ago. Patient denied abdominal pain, dysuria, headaches or any other current symptoms. Chest x-ray on 07/25/2017 showed moderate opacity within the right lung consistent with pleural effusion and atelectasis. CTA chest on 07/25/2017 showed no evidence of pulmonary embolism but redemonstrated large right pleural effusion with adjacent atelectasis, probable cirrhotic liver with 2 masses within the left hepatic lobe which were suspicious for possible hepatocellular carcinoma. Patient's was started on IV steroids, DuoNeb nebulized treatments, and IV Levaquin for empiric antibiotic coverage. On examination patient is awake alert, in no acute distress, sitting up in the chair. He is still having the nonproductive congested loose cough, his lung sounds are clear but very diminished at the bases. No wheezes, no rhonchi, no rales were auscultated. Patient's abdomen is firm and protuberant. He states he feels better today and that he feels like he could go home. He states he would like to be able to walk around the room without having to be connected to oxygen or the IV poles. His appetite has been poor per his , consult was put in for the registered dietitian regarding his protein calorie malnutrition. Patient had over 100 pound weight loss since his diagnosis of hepatocellular carcinoma. On 07/26/2017 patient is seen in follow-up on oncology floor. He continues to deny any significant dyspnea, chest congestion or phlegm production. He denies any hemoptysis, chest pain, fever, or chills. He needs to be very weak but he is able to ambulate with assistance from his bed to the bathroom. Lung sounds are very diminished bilaterally with dullness to percussion over right lung. He is on 2 L of oxygen nasal cannula with O2 saturation at 99%. He has been afebrile. He states he wants to go home today and she feels well enough to go home. We'll have him follow-up with his physicians from [facility]. From pulmonary standpoint we are unable to proceed with thoracentesis with a paracentesis at this time due to his significant coagulopathy secondary to HCC with metastasis. If the decision is made to proceed with draining of the fluid , paracentesis should be done first followed by the thoracentesis, after the coagulopathy had been reversed. Objective - Vital Signs Vital signs: Vital Signs Temp 97.6 F 07/26/17 08:21 Pulse 71 07/26/17 09:39 Resp 16 07/26/17 09:39 BP 110/58 07/26/17 08:21 Pulse Ox 99 07/25/17 21:44 Intake & Output 07/25/17 07/26/17 07/26/17 18:59 06:59 18:59 Intake Total 220 Balance 220 Weight 63.594 kg Intake: Intake, IV Titration 220 Amount Sodium Chloride 0.9% 1, 220 000 ml @ 20 mls/hr IV . Q24H [facility] Rx#:[id number] Other: Voiding Method Diaper Urinal Diaper # Voids 2 3 - Constitutional General appearance: Present: cooperative, no acute distress, thin - EENT Eyes: Present: PERRLA ENT: Present: NA/AT, normal oropharynx Ears: bilateral: normal - Neck Neck: Present: normal ROM Carotids: bilateral: upstroke normal Thyroid: bilateral: normal size - Respiratory Respiratory: bilateral: diminished, dullness (On the right) - Cardiovascular Rhythm: regular Heart sounds: normal: S1, S2 - Peripheral edema ankle Peripheral Edema: bilateral: 1+ - Peripheral pulses dorsalis pedis Peripheral Pulses: bilateral: Normal radial pulse Peripheral Pulses: bilateral: Normal - Gastrointestinal General gastrointestinal: Present: normal bowel sounds - Integumentary Integumentary: Present: normal - Neurologic Neurologic: Present: CNII-XII intact - Musculoskeletal Musculoskeletal: Present: generalized weakness, strength equal bilaterally - Psychiatric Psychiatric: Present: A&O x's 3, appropriate affect, intact judgment & insight - Labs CBC & Chem 7: 07/25/17 02:31 07/25/17 02:31 Labs: Microbiology - Last 24 Hours (Table) 07/25/17 02:31 Blood Culture - Preliminary Blood No Growth after 24 hours - Imaging and Cardiology Chest x-ray: report reviewed Assessment and Plan Plan: Assessment: #1. Right pleural effusion due to hepatocellular carcinoma. Patient may need thoracentesis and paracentesis if the INR is less than 1.4. This option was given to the patient and his family, who at this time are trying to decide whether to proceed with transfer to [facility] where patient is receiving his chemotherapy for his hepatocellular carcinoma with metastasis #2. Hepatocellular carcinoma with metastasis, undergoing chemotherapy #3. Coagulopathy, INR is 2.5, related to HCC with metastasis #4. Elevated d-dimer, CTA chest on 07/25/2017 negative for PE #5. Ascites with history of paracentesis #6. Hyponatremia, present on admission #7. History of permanent pacemaker for complete heart block #8. Coronary artery disease #9. Hyperlipidemia #10. Hypertension #11. History of esophageal varices related to history of EtOH dependence #12. History of nicotine dependence, in remission Plan: Continue with DuoNeb nebulized treatments, agree with empiric antibiotics in the form of Levaquin. Unable to proceed with thoracentesis or paracentesis at this time due to coagulopathy. Clinically patient is not in any significant amount of respiratory distress. Patient wants to go home today. From pulmonary standpoint he is stable for discharge with a follow-up with his physicians at [facility] as an outpatient. No sputum production, no fevers. If the patient decides to proceed with the paracentesis or the thoracentesis here, we may have to transfuse with fresh frozen plasma and give vitamin K, this can be done as an outpatient. I performed a history & physical examination of the patient and discussed their management with my nurse practitioner, Ayah Virk. I reviewed the nurse practitioner's note and agree with the documented findings and plan of care. Unable to proceed with thoracentesis or the paracentesis due to coagulopathy. Lungs sounds are clear diminished at the bases, with no rhonchi, no wheezing no rales. Patient is not using any accessory muscles, no signs of significant respiratory distress. He is requesting to go home today and he is stable for discharge home with follow-up with his physicians at [facility] as an outpatient. I attest to the documentation by the nurse practitioner
--- NOTE | 2017-07-27 01:31 | P.DS ---
Providers Date of admission: 07/25/17 05:19 Expected date of discharge: 07/26/17 Attending physician: Denis Hills Consults: 07/25/17 07:27 Consult Physician Routine Consulting Provider: Addie Graves Consult Reason/Comments: pleural effusion Do you want consulting provider notified?: Yes Primary care physician: Denis Hills [facility] Course: Discharge diagnosis -Large right pleural effusion, present on admission -Hepatocellular carcinoma with metastasis, undergoing chemotherapy at [facility] in [place] -Elevated d-dimer, chest CT negative for PE -Hyponatremia, present on admission -Coagulopathy, INR 2.5, secondary to liver disease -Elevated bilirubin and alkaline phosphatase, secondary to liver disease -History of alcohol abuse, with last drink 25 years ago -Severe protein calorie malnutrition, patient reports weight loss of 100 pounds -Ascites with history of paracentesis -History of complete heart block with permanent pacemaker insertion -Hyperlipidemia Hospital course 77 year male who presented to the ER on 07/24/2017 with a chief complaint and difficulty in breathing. He reports that he has had a cough for a few weeks but it has become worse within the last couple days and he is having difficulty breathing. The patient has a history of hepatocellular carcinoma with metastasis that was diagnosed approximately 4 years ago. The patient is undergoing chemo treatments at [facility]. His last treatment was about a month ago. The patient also has a history of coronary artery disease, hyperlipidemia, hypertension, liver disease, osteoarthritis, hiatal hernia, gastritis, esophageal varices ascites with paracentesis, complete heart block with pacemaker insertion, alcohol abuse with reported last drink 25 years ago. The patient also reports to Dr. Hills that he thinks he may have had a thoracentesis downtown but is not for sure. A chest x-ray was completed in the emergency room which displayed moderate opacity within the right lung base consistent with pleural effusion and probable atelectasis. The patient also underwent a CAT scan of the chest which was negative for pulmonary embolism. However, there was a large right pleural effusion with presumed adjacent atelectasis and also the possibility of pneumonia. It displayed liver cirrhosis with 2 masses within the left hepatic lobe with the largest measuring 9 cm. The patient's bilirubin was 3.4 and his alkaline phosphatase was 283. ALT and AST were within normal limits. His lactic acid was 1.9. Kidney function was within normal range. His sodium is decreased at 129. INR is elevated at 2.5. His d-dimer was elevated at 4.13. He was admitted to the hospital under the care of Dr. Hills. Consults were placed to pulmonary. The patient was seen and examined this morning in rounds with Dr. Hills. The patient is sitting up in bed, awake and alert. He states he is feeling decent this morning and has no specific complaints. He is eating breakfast and states his appetite is good. However, he states he has lost approximately 100 pounds due to his declining health. The patient states he would like to continue to follow-up with his oncologist [place], so no oncology consultation will be ordered at this time. The patient states he would like to get his pleural effusion resolved and will follow-up with his oncologist downtown after discharge. Patient was seen by pulmonary and and thoracentesis could not be done due to coagulopathy. Otherwise patient is not complaining of shortness of breath or having Done. Patient Would like to Be Discharged Home and Was to Follow-Up with His Oncologist at [facility]. Patient Was Discharged Home and Recommended to Follow-Up with His Oncologist. Patient Is Not Requiring Emergent Paracentesis or Thoracentesis at This Time. Discharge physical examination was done Total time taken greater than 35 minutes including 18 minutes for counseling and coordination of care. Patient Condition at Discharge: Poor Plan - Discharge Summary Discharge Rx Participant: No New Discharge Prescriptions: Continue Spironolactone [Aldactone] 50 mg PO BID Metoprolol Tartrate 25 mg PO BID Furosemide [Lasix] 40 mg PO DAILY amLODIPine BESYLATE/BENAZEPRIL [Lotrel 5-20 mg Capsule] 1 cap PO DAILY Simvastatin [Zocor] 20 mg PO HS Aspirin EC [Ecotrin] 325 mg PO DAILY Ferrous Sulfate [Iron] 325 mg PO TID Discharge Medication List Aspirin EC [Ecotrin] 325 mg PO DAILY 02/14/15 [History] Furosemide [Lasix] 40 mg PO DAILY 02/14/15 [History] Metoprolol Tartrate 25 mg PO BID 02/14/15 [History] Simvastatin [Zocor] 20 mg PO HS 02/14/15 [History] Spironolactone [Aldactone] 50 mg PO BID 02/14/15 [History] amLODIPine BESYLATE/BENAZEPRIL [Lotrel 5-20 mg Capsule] 1 cap PO DAILY 02/14/15 [History] Ferrous Sulfate [Iron] 325 mg PO TID 07/25/17 [History] Follow up Appointment(s)/Referral(s): Denis Hills DO [Primary Care Provider] - 1-2 days Patient Instructions/Handouts: Pleural Effusion (DC) Activity/Diet/Wound Care/Special Instructions: follow up with Telly Cerrato on Friday Discharge Disposition: HOME SELF-CARE
== END 2017-07-26 13:16 | disposition home or self-care (01) | DRG 435 ==
LOC: EC 01:45 → 5ONC 05:19
PROVIDERS: ADMIT Family Medicine; ATTEND Family Medicine
PROC: 0HQEXZZ Repair Left Lower Arm Skin, External Approach (ICD-10-PCS; principal; 2017-07-25)
DX: C22.0 Liver cell carcinoma (principal); E43 Unspecified severe protein-calorie malnutrition; J91.0 Malignant pleural effusion; C79.9 Secondary malignant neoplasm of unspecified site; D68.4 Acquired coagulation factor deficiency; R18.8 Other ascites; E87.1 Hypo-osmolality and hyponatremia; J98.11 Atelectasis; Z68.1 Body mass index [BMI] 19.9 or less, adult; E86.1 Hypovolemia; R13.10 Dysphagia, unspecified; K74.60 Unspecified cirrhosis of liver; F10.21 Alcohol dependence, in remission; E78.5 Hyperlipidemia, unspecified; L30.9 Dermatitis, unspecified; I25.10 Atherosclerotic heart disease of native coronary artery without angina pectoris; I10 Essential (primary) hypertension; D64.9 Anemia, unspecified; M17.0 Bilateral primary osteoarthritis of knee; M47.9 Spondylosis, unspecified; S51.812A Laceration without foreign body of left forearm, initial encounter; K44.9 Diaphragmatic hernia without obstruction or gangrene; Z79.82 Long term (current) use of aspirin; Z79.899 Other long term (current) drug therapy; Z71.3 Dietary counseling and surveillance; Z95.0 Presence of cardiac pacemaker; Z92.21 Personal history of antineoplastic chemotherapy; Z98.42 Cataract extraction status, left eye; Z98.41 Cataract extraction status, right eye; Z87.891 Personal history of nicotine dependence; Z91.041 Radiographic dye allergy status; Z95.5 Presence of coronary angioplasty implant and graft; W22.8XXA Striking against or struck by other objects, initial encounter; Y92.230 Patient room in hospital as the place of occurrence of the external cause
CPT/HCPCS: 36415; 71020; 71275; 76604; 80053; 82550; 82553; 83605; 83735; 84484; 85025; 85379; 85610; 85730; 87040; 93005; 94640; 96365; 96366; 96375; 99285

== ENCOUNTER 2017-08-13 15:53 | Inpatient (IN) | payer MEDICARE ==
[2017-08-13] MEDS ORDERED: SODIUM CHLORIDE 0.9% 1,000 ML IV STA (16:56)
[2017-08-13] MEDS ORDERED: PANTOPRAZOLE 40 MG/10 ML VIAL IVP STA (16:56)
--- NOTE | 2017-08-13 17:01 | ED ---
General Adult HPI - General Chief complaint: GI Bleed Stated complaint: Black emesis Time Seen by Provider: 08/13/17 16:36 Source: patient, family, RN notes reviewed Mode of arrival: EMS Limitations: no limitations - History of Present Illness Initial comments: patient is a pleasant 77-year-old male presenting to the emergency Department with dark black emesis episode. Majority of history is taken by the . Patient has liver cancer. 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 Patient is mostly bedridden. Patient does have a history of target chemotherapy and radiation. Patient's chemotherapy care has been at [facility]. Patient has been more weak over the past couple of weeks. Patient's blood pressure has been somewhat lower over the past couple of weeks. Patient has had dark stools the past couple of days. Decreased oral intake. Today patient had an episode of black emesis. Patient admits to feeling more fatigued over the past few days. - Related Data Home Medications Medication Instructions Recorded Confirmed Aspirin EC [Ecotrin] 325 mg PO DAILY 02/14/15 08/13/17 Furosemide [Lasix] 40 mg PO DAILY 02/14/15 08/13/17 Metoprolol Tartrate 25 mg PO BID 02/14/15 08/13/17 Simvastatin [Zocor] 20 mg PO HS 02/14/15 08/13/17 Spironolactone [Aldactone] 50 mg PO BID 02/14/15 08/13/17 amLODIPine BESYLATE/BENAZEPRIL 1 cap PO DAILY 02/14/15 08/13/17 [Lotrel 5-20 mg Capsule] Ferrous Sulfate [Iron] 325 mg PO TID 07/25/17 08/13/17 Levofloxacin [Levaquin] 500 mg PO DAILY 08/13/17 08/13/17 Pantoprazole [Protonix] 40 mg PO DAILY 08/13/17 08/13/17 Allergies Allergy/AdvReac Type Severity Reaction Status Date / Time Iodine and Iodide Containing Allergy Rash/Hives Verified 08/13/17 16:23 Produc Review of Systems ROS Statement: Those systems with pertinent positive or pertinent negative responses have been documented in the HPI. ROS Other: All systems not noted in ROS Statement are negative. Constitutional: Denies: fever Eyes: Denies: eye pain ENT: Denies: ear pain Respiratory: Denies: cough, dyspnea Cardiovascular: Denies: chest pain Endocrine: Reports: fatigue Gastrointestinal: Reports: nausea, hematemesis (black emesis), melena. 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 History of Any Multi-Drug Resistant Organisms: None Reported Past Surgical History: Heart Catheterization With Stent, Hernia Repair, Orthopedic Surgery, Pacemaker Additional Past Surgical History / Comment(s): hernia repair 2013, left ankle surgery orif, PORTAL VEIN MAPPING 03/04/17, BILAT CATARACTS REMOVED Past Anesthesia/Blood Transfusion Reactions: No Reported Reaction Additional Past Anesthesia/Blood Transfusion Reaction / Comment(s): never had transfusion Date of Last Stent Placement:: 2010 Type of Cardiac Device: Permanent Pacemaker Device Placement Date:: 2009 Past Psychological History: No Psychological Hx Reported Smoking Status: Former smoker Past Alcohol Use History: None Reported Past Drug Use History: None Reported - Past Family History Mother Family Medical History: Hypertension Additional Family Medical History / Comment(s): Mother lived to be in her early 80s. Father Family Medical History: Cancer Additional Family Medical History / Comment(s): Kemi Gherig's Disease General Exam Limitations: no limitations General appearance: alert, cachectic Head exam: Present: atraumatic Eye exam: Present: scleral icterus ENT exam: Present: mucous membranes dry, other (black emesis remains on mouth and teeth.) Neck exam: Present: normal inspection Respiratory exam: Present: normal lung sounds bilaterally Cardiovascular Exam: Present: regular rate, normal rhythm GI/Abdominal exam: Present: soft, organomegaly (hepatomegaly). Absent: tenderness Extremities exam: Present: normal inspection Neurological exam: Present: alert Psychiatric exam: Present: normal affect, normal mood Skin exam: Present: other (jaundice appearance) Course Vital Signs 08/13/17 08/13/17 08/13/17 15:56 18:25 19:08 Temperature 96.7 F L 97.8 F Pulse Rate 94 88 113 H Respiratory 18 18 18 Rate Blood Pressure 98/65 91/54 99/60 O2 Sat by Pulse 93 L 100 Oximetry - Reevaluation(s) Reevaluation #1: 08/13/17 17:01 patient and state he has no code and no intubation. Medical Decision Making - Medical Decision Making patient reexamined. Patient and family updated. Case was discussed in detail with Dr. Hills who is familiar with this patient. He will admit his patient with consult with oncology and gastroenterology. He is also going to have a discussion with him regarding hospice. - Lab Data Result diagrams: 08/13/17 18:04 08/13/17 18:04 Lab Results 08/13/17 08/13/17 08/13/17 Range/Units 16:17 18:04 18:04 WBC 11.2 H (3.8-10.6) k/uL RBC 2.96 L (4.30-5.90) m/uL Hgb 9.8 L (13.0-17.5) gm/dL Hct 34.5 L (39.0-53.0) % MCV 116.5 H D (80.0-100.0) fL MCH 32.9 (25.0-35.0) pg MCHC 28.3 L (31.0-37.0) g/dL RDW 19.8 H (11.5-15.5) % Plt Count 106 L (150-450) k/uL Neutrophils % (Manual) 74 % Band Neutrophils % 7 % Lymphocytes % (Manual) 11 % Monocytes % (Manual) 7 % Metamyelocytes % 1 % Neutrophils # (Manual) 9.00 H (1.3-7.7) k/uL Lymphocytes # (Manual) 1.23 (1.0-4.8) k/uL Monocytes # (Manual) 0.78 (0-1.0) k/uL Metamyelocytes # (Man) 0.11 H (0) k/uL Nucleated RBCs 0 (0-0) /100 WBC Manual Slide Review Performed Polychromasia Present Hypochromasia Marked Anisocytosis Slight Anisocytosis (manual) Present Macrocytosis Marked Target Cells Present PT 29.8 H (9.0-12.0) sec INR 3.1 H (<1.2) APTT 30.0 (22.0-30.0) sec Sodium (137-145) mmol/L Potassium (3.5-5.1) mmol/L Chloride (98-107) mmol/L Carbon Dioxide (22-30) mmol/L Anion Gap mmol/L BUN (9-20) mg/dL Creatinine (0.66-1.25) mg/dL Est GFR (MDRD) Af Amer (>60 ml/min/1.73 sqM) Est GFR (MDRD) Non-Af (>60 ml/min/1.73 sqM) Glucose (74-99) mg/dL Calcium (8.4-10.2) mg/dL Total Bilirubin (0.2-1.3) mg/dL AST (17-59) U/L ALT (21-72) U/L Alkaline Phosphatase (38-126) U/L Total Creatine Kinase (55-170) U/L CK-MB (CK-2) (0.0-2.4) ng/mL CK-MB (CK-2) Rel Index Troponin I (0.000-0.034) ng/mL Total Protein (6.3-8.2) g/dL Albumin (3.5-5.0) g/dL Stool Occult Blood Negative (Negative) 08/13/17 08/13/17 Range/Units 18:04 18:04 WBC (3.8-10.6) k/uL RBC (4.30-5.90) m/uL Hgb (13.0-17.5) gm/dL Hct (39.0-53.0) % MCV (80.0-100.0) fL MCH (25.0-35.0) pg MCHC (31.0-37.0) g/dL RDW (11.5-15.5) % Plt Count (150-450) k/uL Neutrophils % (Manual) % Band Neutrophils % % Lymphocytes % (Manual) % Monocytes % (Manual) % Metamyelocytes % % Neutrophils # (Manual) (1.3-7.7) k/uL Lymphocytes # (Manual) (1.0-4.8) k/uL Monocytes # (Manual) (0-1.0) k/uL Metamyelocytes # (Man) (0) k/uL Nucleated RBCs (0-0) /100 WBC Manual Slide Review Polychromasia Hypochromasia Anisocytosis Anisocytosis (manual) Macrocytosis Target Cells PT (9.0-12.0) sec INR (<1.2) APTT (22.0-30.0) sec Sodium 135 L (137-145) mmol/L Potassium 5.1 (3.5-5.1) mmol/L Chloride 103 (98-107) mmol/L Carbon Dioxide 25 (22-30) mmol/L Anion Gap 7 mmol/L BUN 27 H (9-20) mg/dL Creatinine 0.85 (0.66-1.25) mg/dL Est GFR (MDRD) Af Amer >60 (>60 ml/min/1.73 sqM) Est GFR (MDRD) Non-Af >60 (>60 ml/min/1.73 sqM) Glucose 100 H (74-99) mg/dL Calcium 9.9 (8.4-10.2) mg/dL Total Bilirubin 8.0 H (0.2-1.3) mg/dL AST 71 H (17-59) U/L ALT 43 (21-72) U/L Alkaline Phosphatase 315 H (38-126) U/L Total Creatine Kinase 23 L (55-170) U/L CK-MB (CK-2) 1.5 (0.0-2.4) ng/mL CK-MB (CK-2) Rel Index 6.5 Troponin I 0.051 H* (0.000-0.034) ng/mL Total Protein 6.3 (6.3-8.2) g/dL Albumin 2.3 L (3.5-5.0) g/dL Stool Occult Blood (Negative) - Radiology Data Radiology results: image reviewed (Chest x-ray shows large right effusion and lower lobe consolidation.) Disposition Clinical Impression: Upper GI hemorrhage Disposition: ADMITTED IP TO [facility] Condition: Serious Referrals: Denis Hills DO [Primary Care Provider] - 1-2 days Decision Time: 19:52
[2017-08-13 18:42] LABS: Anisocytosis Slight; CH 31.7; HCT 34.5 % (39.0-53.0); HDW 2.27; HGB 9.8 gm/dL (13.0-17.5); Hypochromasia Marked; MCH 32.9 pg (25.0-35.0); Macrocytosis Marked; Mean Platelet Volume 7.7; RBC 2.96 m/uL (4.30-5.90); RDW 19.8 % (11.5-15.5); WBC 11.2 k/uL (3.8-10.6); WBC (Perox) 11.63
[2017-08-13 18:43] LABS: MCHC 28.3 g/dL (31.0-37.0); MCV 116.5 fL (80.0-100.0)
[2017-08-13 18:44] LABS: CHCM 27.4
[2017-08-13 18:47] LABS: ALT 43 U/L (21-72); AST 71 U/L (17-59); Alkaline Phosphatase 315 U/L (38-126); Anion Gap 7 mmol/L; Blood Urea Nitrogen 27 mg/dL (9-20); Calcium 9.9 mg/dL (8.4-10.2); Carbon Dioxide 25 mmol/L (22-30); Chloride 103 mmol/L (98-107); Glucose 100 mg/dL (74-99); Non-African American GFR(MDRD) >60 (>60 ml/min/1.73 sqM); Potassium 5.1 mmol/L (3.5-5.1); Sodium 135 mmol/L (137-145); Total Protein 6.3 g/dL (6.3-8.2)
[2017-08-13 18:48] LABS: INR 3.1 (<1.2); Prothrombin Time 29.8 sec (9.0-12.0)
--- NOTE | 2017-08-13 18:49 | XR ---
EXAMINATION TYPE: XR chest 1V portable DATE OF EXAM: 08/13/2017 COMPARISON: 07/25/2017 HISTORY: Vomiting TECHNIQUE: Single frontal view of the chest is obtained. FINDINGS: There is a moderate-sized right pleural effusion. There is mild pulmonary congestion. Ther e is a left axillary pacemaker with the lead tips in the right ventricle. I see no pleural fluid on t he left side. There are are chest leads. IMPRESSION: Large right pleural effusion and right lower lobe consolidation are increased compared t o last exam. There is probably mild heart failure.
[2017-08-13 18:50] LABS: Add Differential Manual Differential
[2017-08-13 18:53] LABS: Band Neutrophils % 7 %; Manual Review Performed; Metamyelocytes % 1 %; Nucleated Red Blood Cells 0 /100 WBC (0-0); Polychromasia Present; Total Cells Counted 100
[2017-08-13 18:54] LABS: Target Cells Present
[2017-08-13 19:12] LABS: Creatine Kinase MB 1.5 ng/mL (0.0-2.4)
[2017-08-13 19:18] LABS: Troponin I 0.051 ng/mL (0.000-0.034)
[2017-08-13] MEDS ORDERED: PHYTONADIONE 10 MG in SODIUM CHLORIDE 0.9% 50 ML IVPB STA (19:51)
[2017-08-13] MEDS ORDERED: NALOXONE 0.4 MG/ML 1 ML VIAL IV PRN (19:52)
[2017-08-13] MEDS: SODIUM CHLORIDE 0.9% 1,000 ML IV SCH (20:11)
[2017-08-14 07:33] LABS: Prothrombin Time 28.8 sec (9.0-12.0)
[2017-08-14 07:34] LABS: Anisocytosis Slight; Basophils % (A) 0 %; CH 31.9; CHCM 28.4; Eosinophils # (A) 0.1 k/uL (0-0.7); Eosinophils % (A) 1 %; HCT 32.7 % (39.0-53.0); HDW 2.31; HGB 9.4 gm/dL (13.0-17.5); Hypochromasia Marked; Luc # (Auto) 0.11; Luc % (Auto) 1; Lymphocytes # (A) 0.5 k/uL (1.0-4.8); Lymphocytes % (A) 4 %; MCH 32.6 pg (25.0-35.0); MCHC 28.8 g/dL (31.0-37.0); MCV 113.1 fL (80.0-100.0); Macrocytosis Marked; Mean Platelet Volume 7.9; Monocytes # (A) 0.6 k/uL (0-1.0); Monocytes % (A) 5 %; Neutrophils # (A) 11.1 k/uL (1.3-7.7); Neutrophils % (A) 90 %; RBC 2.89 m/uL (4.30-5.90); RDW 19.7 % (11.5-15.5); WBC 12.3 k/uL (3.8-10.6); WBC (Perox) 12.62
[2017-08-14 07:37] LABS: ALT 42 U/L (21-72); AST 57 U/L (17-59); Alkaline Phosphatase 302 U/L (38-126); Anion Gap 8 mmol/L; Blood Urea Nitrogen 27 mg/dL (9-20); Carbon Dioxide 25 mmol/L (22-30); Chloride 104 mmol/L (98-107); Glucose 93 mg/dL (74-99); Non-African American GFR(MDRD) >60 (>60 ml/min/1.73 sqM); Potassium 4.3 mmol/L (3.5-5.1); Sodium 137 mmol/L (137-145); Total Bilirubin 8.7 mg/dL (0.2-1.3); Total Protein 6.2 g/dL (6.3-8.2)
[2017-08-14] MEDS: PANTOPRAZOLE 40 MG/10 ML VIAL IV SCH (09:59)
[2017-08-14] MEDS: SODIUM CHLORIDE 0.9% 1,000 ML IV SCH ×2 (09:59→17:51)
[2017-08-14] MEDS ORDERED: PHYTONADIONE 10 MG in SODIUM CHLORIDE 0.9% 50 ML IVPB STA (10:39)
--- NOTE | 2017-08-14 11:12 | P.HPIM ---
History of Present Illness H&P Date: 08/14/17 77-year-old male who presented to the emergency room on 08/13/2017 with a chief complaint of fatigue and one episode of black emesis. The patient has a history of hepatocellular carcinoma with metastasis that was diagnosed approximately 4 years ago. The patient was undergoing chemo treatments at [facility]. The patient also has a history of coronary artery disease, hyperlipidemia, hypertension, liver disease, osteoarthritis, hiatal hernia, gastritis, esophageal varices ascites with paracentesis, complete heart block with pacemaker insertion, alcohol abuse with reported last drink 25 years ago. Patient had a recent hospital admission from 07/25/2017 until 07/26/2017 with a chief complaint of difficulty in breathing. He was found to have a right pleural effusion. He was unable to have a thoracentesis at that time due to his coagulopathy secondary to HCC. The patient felt well enough to be discharged home and stated he would follow up with his physician at [facility]. In the emergency room, a chest x-ray was completed which revealed large right pleural effusion and right lower lobe consolidation. EKG was completed which shows ventricular pacing. White count on admission was 11.2. Hemoglobin 9.8. Sodium 135. Potassium 5.1. BUN 27. Creatinine 0.85. AST 71, ALT 43. Bilirubin 8.0. Troponin 0.051. INR was 3.1. The patient received 10 mg of vitamin K. The patient was admitted to the hospital under the care of Dr. Hills. Consultations were placed to oncology and GI. The patient was seen and examined at the bedside. No family present. The patient is awake and alert. He appears very cachectic and frail. He is only able to speak in one or two word answers. He does state that he feels extremely weak and fatigued. Evidence of black emesis remains on his teeth and mucus membranes. He denies chest pain or pressure. Denies shortness of breath. He is maintaining oxygen saturations greater than 92% on 4L NC. His INR this morning is 3.0. GI was consulted to evaluate patient for upper GI bleeding. He denies nausea or vomiting. Case management spoke with this morning who requested further information regarding hospice. [facility] is to meet with today and possibly sign patient into hospice. Spoke with Alma Yañez NP with GI service. Will cancel GI consult. Review of Systems GENERAL: Positive for generalized weakness and fatigue. Patient denies fever. Denies chills. EYES: Denies blurred vision. Denies vision changes. Denies eye pain. EARS, NOSE, MOUTH, & THROAT: Denies headache. Denies sore throat. Denies ear pain. RESPIRATORY: Denies cough. Denies shortness of breath. Denies sputum production. Denies hemoptysis. CARDIOVASCULAR: Denies chest pain or pressure. Denies palpitations. Denies arrhythmias. GASTROINTESTINAL: Positive for emesis with dark/black output. Denies abdominal pain. Denies diarrhea. Denies constipation. Denies nausea. Denies heartburn. Denies blood in the stool. GENITOURINARY: Denies urinary frequency. Denies burning. Denies dysuria. Denies cloudy urine. Denies blood in the urine. MUSCULOSKELETAL: Denies myalgias. Denies joint swelling. Denies decreased range of motion beyond patients baseline. INTEGUMENTARY: Denies pruitis. Denies rash. PSYCHIATRIC: Denies suicidal or homicial ideations. ENDOCRINE: Positive for weight loss. Denies polydipsia. Denies polyuria. HEMATOLOGIC: Positive for coagulopathy from liver disease. Past Medical History Past Medical History: Coronary Artery Disease (CAD), Cancer, GERD/Reflux, Hyperlipidemia, Hypertension, Liver Disease, Osteoarthritis (OA), Skin Disorder Additional Past Medical History / Comment(s): Pt recently admitted to [facility] on with Left large pleural effusion-he followed up at [facility] and states they decided not to perform thoracentesis. Other hx: Hepatocellular CA with mets-pt states chemotherapy thru [facility] with last time being about 2 weeks ago, cirrhosis, ascities, esophageal varicies, dysphagia, severe protein calorie malnutrition, pleural effusion, hiatal hernia, low sodium, current coccyx decub , CHB with pacer, UTI, arthriitis knees, back pain, eczema. History of Any Multi-Drug Resistant Organisms: None Reported Past Surgical History: Heart Catheterization With Stent, Hernia Repair, Orthopedic Surgery, Pacemaker Additional Past Surgical History / Comment(s): Hernia repair 2013, paracentesis , portal vein mapping, possible thoracentesis, L ankle ORIF, EGD/colonoscopy, bilateral cataract removal Past Anesthesia/Blood Transfusion Reactions: No Reported Reaction Additional Past Anesthesia/Blood Transfusion Reaction / Comment(s): never had transfusion Date of Last Stent Placement:: 2010 Type of Cardiac Device: Permanent Pacemaker Device Placement Date:: 2009 Smoking Status: Former smoker - Past Family History Mother Family Medical History: Hypertension Additional Family Medical History / Comment(s): Mother lived to be in her early 80s. Father Family Medical History: Cancer Additional Family Medical History / Comment(s): Kemi Mckenzie's Disease Medications and Allergies Home Medications Medication Instructions Recorded Confirmed Type Aspirin EC [Ecotrin] 325 mg PO DAILY 02/14/15 08/13/17 History Metoprolol Tartrate 25 mg PO BID 02/14/15 08/13/17 History Simvastatin [Zocor] 20 mg PO HS 02/14/15 08/13/17 History Spironolactone [Aldactone] 50 mg PO BID 02/14/15 08/13/17 History amLODIPine BESYLATE/BENAZEPRIL 1 cap PO DAILY 02/14/15 08/13/17 History [Lotrel 5-20 mg Capsule] Ferrous Sulfate [Iron] 325 mg PO TID 07/25/17 08/13/17 History Furosemide [Lasix] 20 mg PO BID 08/13/17 08/13/17 History Levofloxacin [Levaquin] 500 mg PO DAILY 08/13/17 08/13/17 History Pantoprazole [Protonix] 40 mg PO DAILY 08/13/17 08/13/17 History Allergies Allergy/AdvReac Type Severity Reaction Status Date / Time Iodine and Iodide Containing Allergy Rash/Hives Verified 08/13/17 16:23 Produc Physical Exam Vitals: Vital Signs Temp Pulse Pulse Resp BP BP Pulse Ox 08/14/17 07:00 97 F L 79 16 104/69 91 L 08/14/17 00:25 97.7 F 94 16 95/52 100 08/13/17 20:13 94 18 94/61 100 08/13/17 19:08 113 H 18 99/60 100 08/13/17 18:25 97.8 F 88 18 91/54 08/13/17 15:56 96.7 F L 94 18 98/65 93 L Intake and Output 08/13/17 08/14/17 08/14/17 22:59 06:59 14:59 Intake Total 1440 Balance 1440 Intake: Intake, IV Titration 850 Amount Phytonadione 10 mg In 50 Sodium Chloride 0.9% 50 ml @ 100 mls/hr IVPB ONCE STA Rx#:[id number] Sodium Chloride 0.9% 1, 800 000 ml @ 100 mls/hr IV . Q10H DEWAYNE Rx#:[id number] Oral 590 Other: Voiding Method Diaper # Voids 2 Weight 63.503 kg GENERAL: This is a 77-year-old male who appears very Cachectic and frail. Pleasant and cooperative. HEENT: Head is atraumatic, normocephalic. Pupils are equal, round, and reactive to light. Sclera jaundice. Conjunctivae are clear. Mucus membranes of the mouth are moist with evidence of black emesis remaining on mucus membranes and teeth. Neck is supple. RESPIRATORY: Diminished throughout. No use of accessory muscles. Patient maintaining oxygen saturation greater than 92% on 4L NC. No chest wall tenderness is noted on palpation or with deep breathing. CARDIOVASCULAR: Regular rate and rhythm. S1 and S2 noted. No systolic or diastolic murmur auscultated. No JVD noted. No S3 or S4 noted. GASTROINTESTINAL: Ascites present. Abdomen soft and round. Bowel sounds auscultated x4 quadrants. No pain or tenderness noted upon palpation. INTEGUMENTARY: Jaundice throughout. No cyanosis. No rashes noted. No cellulitis noted. EXTREMITIES: 2+ peripheral pulses. trace lower extremity edema. No calf tenderness noted. NEUROLOGIC: Cranial nerves II-XII intact. Only able to speak in small sentences or use a few words at a time. Speech is slow. PSYCHIATRIC: Awake and alert. Appropriate affect. Results CBC & Chem 7: 08/14/17 06:42 08/14/17 06:42 Labs: Abnormal Lab Results - Last 24 Hours (Table) 08/13/17 08/13/17 08/13/17 Range/Units 18:04 18:04 18:04 WBC 11.2 H (3.8-10.6) k/uL RBC 2.96 L (4.30-5.90) m/uL Hgb 9.8 L (13.0-17.5) gm/dL Hct 34.5 L (39.0-53.0) % MCV 116.5 H D (80.0-100.0) fL MCHC 28.3 L (31.0-37.0) g/dL RDW 19.8 H (11.5-15.5) % Plt Count 106 L (150-450) k/uL Neutrophils # (1.3-7.7) k/uL Neutrophils # (Manual) 9.00 H (1.3-7.7) k/uL Lymphocytes # (1.0-4.8) k/uL Metamyelocytes # (Man) 0.11 H (0) k/uL PT 29.8 H (9.0-12.0) sec INR 3.1 H (<1.2) Sodium 135 L (137-145) mmol/L BUN 27 H (9-20) mg/dL Glucose 100 H (74-99) mg/dL Total Bilirubin 8.0 H (0.2-1.3) mg/dL AST 71 H (17-59) U/L Alkaline Phosphatase 315 H (38-126) U/L Total Creatine Kinase (55-170) U/L Troponin I (0.000-0.034) ng/mL Total Protein (6.3-8.2) g/dL Albumin 2.3 L (3.5-5.0) g/dL 08/13/17 08/14/17 08/14/17 Range/Units 18:04 06:42 06:42 WBC 12.3 H (3.8-10.6) k/uL RBC 2.89 L (4.30-5.90) m/uL Hgb 9.4 L (13.0-17.5) gm/dL Hct 32.7 L (39.0-53.0) % MCV 113.1 H (80.0-100.0) fL MCHC 28.8 L (31.0-37.0) g/dL RDW 19.7 H (11.5-15.5) % Plt Count 103 L (150-450) k/uL Neutrophils # 11.1 H (1.3-7.7) k/uL Neutrophils # (Manual) (1.3-7.7) k/uL Lymphocytes # 0.5 L (1.0-4.8) k/uL Metamyelocytes # (Man) (0) k/uL PT 28.8 H (9.0-12.0) sec INR 3.0 H (<1.2) Sodium (137-145) mmol/L BUN (9-20) mg/dL Glucose (74-99) mg/dL Total Bilirubin (0.2-1.3) mg/dL AST (17-59) U/L Alkaline Phosphatase (38-126) U/L Total Creatine Kinase 23 L (55-170) U/L Troponin I 0.051 H* (0.000-0.034) ng/mL Total Protein (6.3-8.2) g/dL Albumin (3.5-5.0) g/dL 08/14/17 Range/Units 06:42 WBC (3.8-10.6) k/uL RBC (4.30-5.90) m/uL Hgb (13.0-17.5) gm/dL Hct (39.0-53.0) % MCV (80.0-100.0) fL MCHC (31.0-37.0) g/dL RDW (11.5-15.5) % Plt Count (150-450) k/uL Neutrophils # (1.3-7.7) k/uL Neutrophils # (Manual) (1.3-7.7) k/uL Lymphocytes # (1.0-4.8) k/uL Metamyelocytes # (Man) (0) k/uL PT (9.0-12.0) sec INR (<1.2) Sodium (137-145) mmol/L BUN 27 H (9-20) mg/dL Glucose (74-99) mg/dL Total Bilirubin 8.7 H (0.2-1.3) mg/dL AST (17-59) U/L Alkaline Phosphatase 302 H (38-126) U/L Total Creatine Kinase (55-170) U/L Troponin I (0.000-0.034) ng/mL Total Protein 6.2 L (6.3-8.2) g/dL Albumin 2.2 L (3.5-5.0) g/dL Thrombosis Risk Factor Assmnt - Choose All That Apply Any of the Below Risk Factors Present?: Yes Each Factor Represents 1 point: Medical pt on bed rest Other Risk Factors: Yes Each Risk Factor Represents 2 Points: Malignancy Each Risk Factor Represents 3 Points: Age 75 years or older Other congenital or acquired thrombophilia - If yes, enter type in comment: No Thrombosis Risk Factor Assessment Total Risk Factor Score: 6 Thrombosis Risk Factor Assessment Level: High Risk Assessment and Plan Plan: ASSESSMENT: Suspected upper GI bleeding with one episode of dark brown/black emesis, present on admission Hepatocellular carcinoma with metastasis, was undergoing chemotherapy at [facility] in [place] Coagulopathy, INR 3.1, secondary to liver disease Large right pleural effusion, chronic, unable to perform thoracentesis last hospital admission due to coagulopathy Acute hypoxic respiratory failure, requiring supplemental oxygen, secondary to hepatocellular carcinoma with metastasis and right pleural effusion Chronic elevated bilirubin and alkaline phosphatase, secondary to liver disease History of alcohol abuse, with last drink 25 years ago Severe protein calorie malnutrition, patient reports weight loss of 100 pounds since diagnosis of HCC Ascites with history of paracentesis History of complete heart block with permanent pacemaker insertion Hyperlipidemia PLAN: -Cancel GI consult -Begin regular diet -Oncology on consult. Appreciate recommendations and input -10mg vitamin K -Home meds as appropriate -Hold home medications (antihypertensives, diuretics) until blood pressure improves -Monitor labs -GI prophylaxis: Protonix 40mg IV daily -DVT prophylaxis: N/A due to coagulopathy -Monitor vital signs and address as appropriate -Patient is a DNR in the event of cardiac arrest -Consult placed for hospice per case management as requested informational meeting -Further recommendations will be made pending patients condition and patient/ 's wishes for how aggressive they wish to be in terms of treatment options Nurse practitioner note has been reviewed by physician. Signing provider agrees with the documented findings, assessment, and plan of care.
[2017-08-14 13:58] VITALS: BMI 17.9
--- NOTE | 2017-08-14 18:37 | P.CONS ---
History of Present Illness - Reason for Consult Consult date: 08/14/17 HCC Requesting physician: Denis Hills - Chief Complaint black emesis - History of Present Illness Patient is a very pleasant 77-year-old male with a history of hepatocellular carcinoma initially diagnosed in 2014, he has been treated with chemotherapy embolization, ablation and oral Nexavar. Patient's most recent treatment was within the last few months, per patient's he has slowly declined since that time. Progressive weakness, not eating or drinking, moving around less and less. Pt has decubitus ulceration that home care nurse has been trying to manage. Pt is lethargic, drifts off to sleep at times, speech is slow. He denies nausea, hunger or pain. Review of Systems Difficult to obtain as pt is tired and confused, few questions answered as stated in HPI Past Medical History Past Medical History: Coronary Artery Disease (CAD), Cancer, GERD/Reflux, Hyperlipidemia, Hypertension, Liver Disease, Osteoarthritis (OA), Skin Disorder Additional Past Medical History / Comment(s): Pt recently admitted to [facility] on with Left large pleural effusion-he followed up at [facility] and states they decided not to perform thoracentesis. Other hx: Hepatocellular CA with mets-pt states chemotherapy thru [facility] with last time being about 2 weeks ago, cirrhosis, ascities, esophageal varicies, dysphagia, severe protein calorie malnutrition, pleural effusion, hiatal hernia, low sodium, current coccyx decub , CHB with pacer, UTI, arthriitis knees, back pain, eczema. History of Any Multi-Drug Resistant Organisms: None Reported Past Surgical History: Heart Catheterization With Stent, Hernia Repair, Orthopedic Surgery, Pacemaker Additional Past Surgical History / Comment(s): Hernia repair 2013, paracentesis , portal vein mapping, possible thoracentesis, L ankle ORIF, EGD/colonoscopy, bilateral cataract removal Past Anesthesia/Blood Transfusion Reactions: No Reported Reaction Additional Past Anesthesia/Blood Transfusion Reaction / Comm: never had transfusion Date of Last Stent Placement:: 2010 Type of Cardiac Device: Permanent Pacemaker Device Placement Date:: 2009 Past Psychological History: Unable to Obtain Smoking Status: Former smoker Past Alcohol Use History: Unable to Obtain Past Drug Use History: Unable to Obtain - Past Family History Mother Family Medical History: Hypertension Additional Family Medical History / Comment(s): Mother lived to be in her early 80s. Father Family Medical History: Cancer Additional Family Medical History / Comment(s): Kemi Mckenzie's Disease Medications and Allergies Home Medications Medication Instructions Recorded Confirmed Type Aspirin EC [Ecotrin] 325 mg PO DAILY 02/14/15 08/13/17 History Metoprolol Tartrate 25 mg PO BID 02/14/15 08/13/17 History Simvastatin [Zocor] 20 mg PO HS 02/14/15 08/13/17 History Spironolactone [Aldactone] 50 mg PO BID 02/14/15 08/13/17 History amLODIPine BESYLATE/BENAZEPRIL 1 cap PO DAILY 02/14/15 08/13/17 History [Lotrel 5-20 mg Capsule] Ferrous Sulfate [Iron] 325 mg PO TID 07/25/17 08/13/17 History Furosemide [Lasix] 20 mg PO BID 08/13/17 08/13/17 History Levofloxacin [Levaquin] 500 mg PO DAILY 08/13/17 08/13/17 History Pantoprazole [Protonix] 40 mg PO DAILY 08/13/17 08/13/17 History Atropine Ophth Soln 1% 5Ml [Isopto 2 drop SUBLINGUAL Q4H PRN #1 bottle 08/14/17 Rx Atropine 1% 5Ml] LORazepam [Ativan] 1 mg PO Q4H PRN #15 tab 08/14/17 Rx MORPHINE ORAL ELIZ CONC 20mg/mL 5 mg PO Q4HR PRN #30 ml 08/14/17 Rx [Roxanol Oral Soln Conc 20MG/ML] Allergies Allergy/AdvReac Type Severity Reaction Status Date / Time Iodine and Iodide Containing Allergy Rash/Hives Verified 08/13/17 16:23 Produc Physical Exam Vitals: Vital Signs Temp Pulse Pulse Resp BP BP Pulse Ox 08/14/17 14:56 97.6 F 78 16 92/56 08/14/17 07:00 97 F L 79 16 104/69 91 L 08/14/17 00:25 97.7 F 94 16 95/52 100 08/13/17 20:13 94 18 94/61 100 08/13/17 19:08 113 H 18 99/60 100 08/13/17 18:25 97.8 F 88 18 91/54 Intake and Output 11/09/17 11/09/17 11/09/17 06:59 14:59 22:59 Intake Total 1440 Balance 1440 Intake: Intake, IV Titration 850 Amount Phytonadione 10 mg In 50 Sodium Chloride 0.9% 50 ml @ 100 mls/hr IVPB ONCE STA Rx#:[id number] Sodium Chloride 0.9% 1, 800 000 ml @ 50 mls/hr IV . Q20H DEWAYNE Rx#:[id number] Oral 590 Other: Voiding Method Diaper Diaper Diaper # Voids 2 0 Weight 63.503 kg Patient Weight 08/15/17 06:59 Weight 63.503 kg - Constitutional cachetic, very frail, severe muscle wasting - EENT severe dry mouth - Respiratory Respiratory: bilateral: CTA (weak inspiration) - Cardiovascular Heart sounds: normal: S1, S2 leg Peripheral Edema: bilateral: Trace - Gastrointestinal scaphoid, all ribs visible, hepatomegaly past midline and into lower quadrants, hard, palpable nodules - Integumentary chin - Neurologic pt unable to move without help - Musculoskeletal wasting of all muscles - Psychiatric lethargic, pleasant when answering questions, do not feel pt understands, inappropriate answers at times Results CBC & Chem 7: 08/14/17 06:42 08/14/17 06:42 Labs: Abnormal Lab Results - Last 24 Hours (Table) 08/13/17 08/13/17 08/13/17 Range/Units 18:04 18:04 18:04 WBC 11.2 H (3.8-10.6) k/uL RBC 2.96 L (4.30-5.90) m/uL Hgb 9.8 L (13.0-17.5) gm/dL Hct 34.5 L (39.0-53.0) % MCV 116.5 H D (80.0-100.0) fL MCHC 28.3 L (31.0-37.0) g/dL RDW 19.8 H (11.5-15.5) % Plt Count 106 L (150-450) k/uL Neutrophils # (1.3-7.7) k/uL Neutrophils # (Manual) 9.00 H (1.3-7.7) k/uL Lymphocytes # (1.0-4.8) k/uL Metamyelocytes # (Man) 0.11 H (0) k/uL PT 29.8 H (9.0-12.0) sec INR 3.1 H (<1.2) Sodium 135 L (137-145) mmol/L BUN 27 H (9-20) mg/dL Glucose 100 H (74-99) mg/dL Total Bilirubin 8.0 H (0.2-1.3) mg/dL AST 71 H (17-59) U/L Alkaline Phosphatase 315 H (38-126) U/L Total Creatine Kinase (55-170) U/L Troponin I (0.000-0.034) ng/mL Total Protein (6.3-8.2) g/dL Albumin 2.3 L (3.5-5.0) g/dL 08/13/17 08/14/17 08/14/17 Range/Units 18:04 06:42 06:42 WBC 12.3 H (3.8-10.6) k/uL RBC 2.89 L (4.30-5.90) m/uL Hgb 9.4 L (13.0-17.5) gm/dL Hct 32.7 L (39.0-53.0) % MCV 113.1 H (80.0-100.0) fL MCHC 28.8 L (31.0-37.0) g/dL RDW 19.7 H (11.5-15.5) % Plt Count 103 L (150-450) k/uL Neutrophils # 11.1 H (1.3-7.7) k/uL Neutrophils # (Manual) (1.3-7.7) k/uL Lymphocytes # 0.5 L (1.0-4.8) k/uL Metamyelocytes # (Man) (0) k/uL PT 28.8 H (9.0-12.0) sec INR 3.0 H (<1.2) Sodium (137-145) mmol/L BUN (9-20) mg/dL Glucose (74-99) mg/dL Total Bilirubin (0.2-1.3) mg/dL AST (17-59) U/L Alkaline Phosphatase (38-126) U/L Total Creatine Kinase 23 L (55-170) U/L Troponin I 0.051 H* (0.000-0.034) ng/mL Total Protein (6.3-8.2) g/dL Albumin (3.5-5.0) g/dL 08/14/17 Range/Units 06:42 WBC (3.8-10.6) k/uL RBC (4.30-5.90) m/uL Hgb (13.0-17.5) gm/dL Hct (39.0-53.0) % MCV (80.0-100.0) fL MCHC (31.0-37.0) g/dL RDW (11.5-15.5) % Plt Count (150-450) k/uL Neutrophils # (1.3-7.7) k/uL Neutrophils # (Manual) (1.3-7.7) k/uL Lymphocytes # (1.0-4.8) k/uL Metamyelocytes # (Man) (0) k/uL PT (9.0-12.0) sec INR (<1.2) Sodium (137-145) mmol/L BUN 27 H (9-20) mg/dL Glucose (74-99) mg/dL Total Bilirubin 8.7 H (0.2-1.3) mg/dL AST (17-59) U/L Alkaline Phosphatase 302 H (38-126) U/L Total Creatine Kinase (55-170) U/L Troponin I (0.000-0.034) ng/mL Total Protein 6.2 L (6.3-8.2) g/dL Albumin 2.2 L (3.5-5.0) g/dL Comments: EKG reviewed Chest x-ray: report reviewed Assessment and Plan (1) HCC (hepatocellular carcinoma) Narrative/Plan: diagnosed in 2014, multiple treatment modalities utilized. I did have a long discussion with patient and his concerning his current condition. It is unlikely that any further treatment would provide patient with any significant disease control or comfort. I answered all of her questions to the best of my ability. The patient and his were agreeable to meet with hospice and determine the most appropriate setting for his best care. Pt will be discharged with hospice care once arrangements are made. Pt is terminal Hospice consulted, case discussed with Case Management. Current Visit: Yes Status: Chronic Priority: High Code(s): C22.0 - LIVER CELL CARCINOMA SNOMED Code(s): 824576561 (2) Upper GI hemorrhage Narrative/Plan: No further work up for the same, likely r/t disease, poor nutrition Current Visit: Yes Status: Acute Priority: High Code(s): K92.2 - GASTROINTESTINAL HEMORRHAGE, UNSPECIFIED SNOMED Code(s): 05106537 (3) Anemia Narrative/Plan: No transfusions Current Visit: Yes Status: Acute Priority: Medium Code(s): D64.9 - ANEMIA , UNSPECIFIED SNOMED Code(s): 318617222 Time with Patient: Greater than 30 (spent counseling)
[2017-08-14] MEDS ORDERED: ATORVASTATIN 10 MG TAB PO SCH (21:00)
[2017-08-14 22:31] VITALS: TEMP 97.8
[2017-08-15] MEDS: PANTOPRAZOLE 40 MG/10 ML VIAL IV SCH (08:48)
[2017-08-15 10:28] VITALS: BP 101/66; PULSE 77; RESP 20
--- NOTE | 2017-08-15 11:17 | P.DS ---
Providers Date of admission: 08/13/17 19:53 Expected date of discharge: 08/15/17 Attending physician: Denis Hills Consults: 08/13/17 19:53 Consult Physician Urgent Consulting Provider: Remy Yu Consult Reason/Comments: oncological care Do you want consulting provider notified?: Yes Primary care physician: Denis Hills [facility] Course: 77-year-old male who presented to the emergency room on 08/13/2017 with a chief complaint of fatigue and one episode of black emesis. The patient has a history of hepatocellular carcinoma with metastasis that was diagnosed approximately 4 years ago. The patient was undergoing chemo treatments at [facility]. The patient also has a history of coronary artery disease, hyperlipidemia, hypertension, liver disease, osteoarthritis, hiatal hernia, gastritis, esophageal varices ascites with paracentesis, complete heart block with pacemaker insertion, alcohol abuse with reported last drink 25 years ago. Patient had a recent hospital admission from 07/25/2017 until 07/26/2017 with a chief complaint of difficulty in breathing. He was found to have a right pleural effusion. He was unable to have a thoracentesis at that time due to his coagulopathy secondary to HCC. The patient felt well enough to be discharged home and stated he would follow up with his physician at [facility]. In the emergency room, a chest x-ray was completed which revealed large right pleural effusion and right lower lobe consolidation. EKG was completed which shows ventricular pacing. White count on admission was 11.2. Hemoglobin 9.8. Sodium 135. Potassium 5.1. BUN 27. Creatinine 0.85. AST 71, ALT 43. Bilirubin 8.0. Troponin 0.051. INR was 3.1. The patient received 10 mg of vitamin K. The patient was admitted to the hospital under the care of Dr. Hills. Consultations were placed to oncology and GI. GI was consulted to evaluate patient for upper GI bleeding. He denies nausea or vomiting. Case management spoke with this morning who requested further information regarding hospice. [facility] is to meet with today and possibly sign patient into hospice. Spoke with Alma Yañez NP with GI service. Will cancel GI consult. Hospice met with the and patient on 08/14/17 and decided to admit the patient to [facility]. Dr. Hills cleared the patient for discharge to hospice house today. DISCHARGE DIAGNOSIS: Suspected upper GI bleeding with one episode of dark brown/black emesis, present on admission Hepatocellular carcinoma with metastasis, was undergoing chemotherapy at [facility] in [place] Coagulopathy, INR 3.1, secondary to liver disease Large right pleural effusion, chronic, unable to perform thoracentesis last hospital admission due to coagulopathy Acute hypoxic respiratory failure, requiring supplemental oxygen, secondary to hepatocellular carcinoma with metastasis and right pleural effusion Chronic elevated bilirubin and alkaline phosphatase, secondary to liver disease History of alcohol abuse, with last drink 25 years ago Severe protein calorie malnutrition, patient reports weight loss of 100 pounds since diagnosis of HCC Ascites with history of paracentesis History of complete heart block with permanent pacemaker insertion Hyperlipidemia Nurse practitioner note has been reviewed by physician. Signing provider agrees with the documented findings, assessment, and plan of care. Patient Condition at Discharge: Poor Plan - Discharge Summary Discharge Rx Participant: No New Discharge Prescriptions: New Atropine Ophth Soln 1% 5Ml [Isopto Atropine 1% 5Ml] 2 drop SUBLINGUAL Q4H PRN #1 bottle PRN Reason: Secretions LORazepam [Ativan] 1 mg PO Q4H PRN #15 tab PRN Reason: Anxiety MORPHINE ORAL ELIZ CONC 20mg/mL [Roxanol Oral Soln Conc 20MG/ML] 5 mg PO Q4HR PRN #30 ml PRN Reason: Pain No Action Spironolactone [Aldactone] 50 mg PO BID Metoprolol Tartrate 25 mg PO BID amLODIPine BESYLATE/BENAZEPRIL [Lotrel 5-20 mg Capsule] 1 cap PO DAILY Simvastatin [Zocor] 20 mg PO HS Aspirin EC [Ecotrin] 325 mg PO DAILY Ferrous Sulfate [Iron] 325 mg PO TID Pantoprazole [Protonix] 40 mg PO DAILY Levofloxacin [Levaquin] 500 mg PO DAILY Furosemide [Lasix] 20 mg PO BID Discharge Medication List Aspirin EC [Ecotrin] 325 mg PO DAILY 02/14/15 [History] Metoprolol Tartrate 25 mg PO BID 02/14/15 [History] Simvastatin [Zocor] 20 mg PO HS 02/14/15 [History] Spironolactone [Aldactone] 50 mg PO BID 02/14/15 [History] amLODIPine BESYLATE/BENAZEPRIL [Lotrel 5-20 mg Capsule] 1 cap PO DAILY 02/14/15 [History] Ferrous Sulfate [Iron] 325 mg PO TID 07/25/17 [History] Furosemide [Lasix] 20 mg PO BID 08/13/17 [History] Levofloxacin [Levaquin] 500 mg PO DAILY 08/13/17 [History] Pantoprazole [Protonix] 40 mg PO DAILY 08/13/17 [History] Atropine Ophth Soln 1% 5Ml [Isopto Atropine 1% 5Ml] 2 drop SUBLINGUAL Q4H PRN # 1 bottle 08/14/17 [Rx] LORazepam [Ativan] 1 mg PO Q4H PRN #15 tab 08/14/17 [Rx] MORPHINE ORAL ELIZ CONC 20mg/mL [Roxanol Oral Soln Conc 20MG/ML] 5 mg PO Q4HR PRN #30 ml 08/14/17 [Rx] Follow up Appointment(s)/Referral(s): Denis Hills DO [Primary Care Provider] - As Needed Patient Instructions/Handouts: Diphenoxylate/Atropine (By mouth), Lorazepam ( By mouth), Morphine, Rapid Release (By mouth), Hospice (DC) Discharge Disposition: DISCH TO HOSPICE MED FACILTY
== END 2017-08-15 11:05 | disposition hospice, inpatient (51) | DRG 377 ==
LOC: EC 15:53 → 5MS5E 19:53 → 5ONC 22:01
PROVIDERS: ADMIT Family Medicine; ATTEND Family Medicine
DX: K92.2 Gastrointestinal hemorrhage, unspecified (principal); E43 Unspecified severe protein-calorie malnutrition; J96.01 Acute respiratory failure with hypoxia; I44.2 Atrioventricular block, complete; J90 Pleural effusion, not elsewhere classified; D68.9 Coagulation defect, unspecified; C22.0 Liver cell carcinoma; R18.8 Other ascites; C79.9 Secondary malignant neoplasm of unspecified site; K74.60 Unspecified cirrhosis of liver; D64.9 Anemia, unspecified; I10 Essential (primary) hypertension; E78.5 Hyperlipidemia, unspecified; I25.10 Atherosclerotic heart disease of native coronary artery without angina pectoris; K21.9 Gastro-esophageal reflux disease without esophagitis; I85.00 Esophageal varices without bleeding; K44.9 Diaphragmatic hernia without obstruction or gangrene; R13.10 Dysphagia, unspecified; M17.0 Bilateral primary osteoarthritis of knee; L89.152 Pressure ulcer of sacral region, stage 2; Z66 Do not resuscitate; Z79.82 Long term (current) use of aspirin; Z79.899 Other long term (current) drug therapy; Z87.891 Personal history of nicotine dependence; Z74.01 Bed confinement status; Z95.0 Presence of cardiac pacemaker; Z91.041 Radiographic dye allergy status; Z95.5 Presence of coronary angioplasty implant and graft; Z82.49 Family history of ischemic heart disease and other diseases of the circulatory system
CPT/HCPCS: 36415; 71010; 80053; 82272; 82550; 82553; 84484; 85025; 85610; 85730; 86850; 86900; 86901; 93005; 96374; 99285